=== PATIENT | female | born 1960 | race African-American/Black ===

== ENCOUNTER 2016-11-21 16:48 | Emergency (ER) | payer OTHER ==
[~2016-11-21] VITALS: Ht 160 cm; Wt 68.0 kg
[2016-11-21 17:08] VITALS: BP 157/74
--- NOTE | 2016-11-21 17:10 | NUR ---
OK TO BOOK. bib ra c/o generalized weakness from home . [employer] AT BEDSIDE. A/A/O. VS WNL. SIDE RAISL UP. HOB ELEVATED. CONNECTED TO MONIOTR. SEEN AND EVALUATED BY ED PROVIDER.
--- NOTE | 2016-11-21 17:27 | NUR ---
Patient discharged in stable condition. Written and verbal after care instructions given. Patient verbalizes understanding of instruction. OK TO BOOK. MEDICALLY CLEARED FOR BOOKING. [employer] AT BEDSIDE.
== END 2016-11-21 17:29 ==
LOC: ER 16:49
DX: S39.92XA Unspecified injury of lower back, initial encounter (principal); E11.9 Type 2 diabetes mellitus without complications; F25.9 Schizoaffective disorder, unspecified; G89.29 Other chronic pain; Y04.0XXA Assault by unarmed brawl or fight, initial encounter; Y93.89 Activity, other specified; Y92.89 Other specified places as the place of occurrence of the external cause; Y99.9 Unspecified external cause status
CPT/HCPCS: A4606; Z7610

== ENCOUNTER 2018-12-23 19:46 | Emergency (ER) | payer SELFPAY ==
[~2018-12-23] VITALS: Ht 167.6 cm; Wt 50.8 kg
[2018-12-23 19:57] VITALS: BP 121/84
== END 2018-12-23 20:07 | disposition home or self-care (01) ==
LOC: ER 19:49
DX: L03.011 Cellulitis of right finger (principal); G89.29 Other chronic pain; E11.9 Type 2 diabetes mellitus without complications

== ENCOUNTER 2019-01-20 03:42 | Inpatient (IN) | payer MEDICARE ==
[~2019-01-20] VITALS: Ht 165.1 cm; Wt 51.7 kg
--- NOTE | 2019-01-20 03:55 | NUR ---
PT BIB EMS. AAOX4. PT C/O BEING POISONED. PER PATIENT "I HAVE BEEN POISONED AND I NEED YOU GUYS TO HELP ME FIGURE OUT WHAT IT IS." PT RR EVEN AND UNLABORED. UPON ASSESSMENT INDEX FINGER INFECTION + DRAINAGE. PT PLACED ON MONITOR AND PULSE OX. NO ACUTE DISTRESS NOTED.
[2019-01-20] MEDS ORDERED: VANCOMYCIN 1 GM in IV D5W 250 ML IV ONE (04:00)
[2019-01-20] MEDS ORDERED: VANCOMYCIN 1 GM VIAL ONE (04:04)
--- NOTE | 2019-01-20 04:06 | NUR ---
Hand Or Machine Paster at bedside for lab collection
[2019-01-20 04:18] LABS: BASOPHILS # (AUTO) 0.1 /CMM (0.0-0.2); EOSINOPHILS % (AUTO) 0.9 % (0.0-6.0); HEMATOCRIT 42 % (33-45); LYMPHOCYTES # (AUTO) 1.5 /CMM (0.8-4.8); LYMPHOCYTES % (AUTO) 23.2 % (20.0-44.0); MEAN CORPUSCULAR HGB CONC 34 g/dl (31.0-36.0); MEAN CORPUSCULAR VOLUME 93 fL (82-100); MONOCYTES # (AUTO) 0.4 /CMM (0.1-1.30); MONOCYTES % (AUTO) 5.8 % (2.0-12.0); NEUTROPHILS # (AUTO) 4.4 /CMM (1.8-8.9); NEUTROPHILS % (AUTO) 69.1 % (43.0-81.0); PLATELET COUNT (AUTO) 311 /CMM (150-450); RED BLOOD CELL COUNT(AUTO) 4.52 MIL/uL (4.0-5.2); WHITE BLOOD COUNT (AUTO) 6.4 K/uL (4.3-11.0)
--- NOTE | 2019-01-20 04:30 | NUR ---
Patient is resting comfortably in bed. Easily aroused.
[2019-01-20 04:40] LABS: ACETAMINOPHEN 0 ug/ml (10-30); ALANINE AMINOTRANSFERASE 32 U/L (12-78); ALBUMIN 3.5 g/dL (3.4-5.0); ALCOHOL, BLOOD < 3 mg/dL (0-0); ALKALINE PHOSPHATASE 130 U/L (46-116); ASPARTATE AMINOTRANSFERASE 24 U/L (15-37); BILIRUBIN,DIRECT 0.1 mg/dL (0.0-0.2); BILIRUBIN,TOTAL 0.5 mg/dL (0.2-1.0); CALCIUM, SERUM 9.4 mg/dL (8.5-10.1); CARBON DIOXIDE 25 mmol/L (21-32); CHLORIDE 100 mmol/L (98-107); CREATININE 0.8 mg/dL (0.6-1.3); GLUCOSE 423 mg/dL (74-106); POTASSIUM 4.2 mmol/L (3.5-5.1); SODIUM SERUM 136 mmol/L (136-145); TOTAL PROTEIN, SERUM 7.4 g/dL (6.4-8.2); UREA NITROGEN, BLOOD 21 mg/dL (7-18)
[2019-01-20] MEDS ORDERED: INSULIN REGULAR, HUMAN 100 UNIT/ML 10 ML VIAL ONE (04:57)
[2019-01-20] MEDS ORDERED: INSULIN REGULAR, HUMAN 100 UNIT/ML 10 ML VIAL IV ONE (05:00)
[2019-01-20] MEDS ORDERED: IV NS 0.9% 1,000 ML BAG IV ONE (05:00)
--- NOTE | 2019-01-20 05:10 | NUR ---
XRAY AT BEDSIDE
--- NOTE | 2019-01-20 05:28 | NUR ---
MS 313-1
--- NOTE | 2019-01-20 06:15 | NUR ---
REPORT GIVEN TO ABAD BUCK FOR PRATIK
--- NOTE | 2019-01-20 06:20 | NUR ---
PT IN STABLE CONDITION FOR TRANSFER. PT BROUGHT UP BY EMT TRANSFERED TO BED 313-1
[2019-01-20] MEDS ORDERED: HYDROCODONE/APAP 5/325MG 1 EACH TABLET PO PRN (06:30)
[2019-01-20] MEDS ORDERED: ONDANSETRON HCL/PF 4 MG/2 ML VIAL IVP PRN (06:30)
[2019-01-20] MEDS ORDERED: ACETAMINOPHEN 325 MG TABLET PO PRN (06:30)
[2019-01-20] MEDS ORDERED: ZOLPIDEM TARTRATE 5 MG TABLET PO PRN (06:30)
[2019-01-20] MEDS ORDERED: MAGNESIUM HYDROXIDE 30 ML UDC PO PRN (06:30)
[2019-01-20] MEDS ORDERED: IV NS 0.9% 1,000 ML IV ONE (06:30)
[2019-01-20] MEDS ORDERED: Z GUARD REMEDY 2 OZ OINT TP PRN (06:30)
[2019-01-20] MEDS ORDERED: MAG HYDROX/AL HYDROX/SIMETH 30 ML UDC PO PRN (06:30)
[2019-01-20 07:30] VITALS: BP 116/73
--- NOTE | 2019-01-20 07:35 | NUR ---
RN Notes Patient sleeping in bed supine position; Right index finger open to air; Will consult with wound nurse; No complaints of pain/discomfort.
--- NOTE | 2019-01-20 07:52 | NUR ---
MS RN ADMITTING NOTES PT ADMITTED TO UNIT WITH DIAGNOSIS OF CELLULITIS TO RIGHT INDEX FINGER. A/O X3. ABLE TO MAKE NEEDS KNOWN AND AMBULATORY WITH STEADY GAIT. ORIENTED TO UNIT AND STAFF. VSS. ON ROOM AIR, BREATHING EVEN AND UNLABORED. PHOTOS OF SKIN ISSUES TAKEN AND FILED IN CHART. WOUND CONSULT ORDERED. IV ACCESS NOTED INTACT AND PATENT AT LFA G #20, IVF OF NS @ 100ML/HR STARTED, NO S/S OF PHLEBITIS OR INFILTRATION NOTED AT SITE. SAFETY MEASURES KEPT IN PLACE. BED IN LOW LOCKED POSITION WITH SR-UP X2. CALL LIGHT AND BEDSIDE TABLE WITHIN EASY REACH OF PT.
[2019-01-20 08:00] VITALS: BP 120/75
[2019-01-20] MEDS ORDERED: DEXTROSE 50%-WATER 50 ML DISP.SYRIN IV PRN (08:00)
[2019-01-20] MEDS ORDERED: FEE PK DOSING 1 MIN EA MC ONE (08:02)
[2019-01-20] MEDS: BLOOD SUGAR DIAGNOSTIC 1 EACH STRIP IN SCH ×4 (08:22→21:35)
[2019-01-20] MEDS: INSULIN REGULAR, HUMAN 100 UNIT/ML 3 ML VIAL SQ PRN ×4 (08:25→21:45)
[2019-01-20] MEDS ORDERED: METF-440 PO (08:51)
[2019-01-20] MEDS ORDERED: EMPA25TA PO (08:51)
[2019-01-20] MEDS ORDERED: TRAZ-214 PO (08:51)
[2019-01-20] MEDS ORDERED: FLUO-120 PO (08:51)
[2019-01-20] MEDS ORDERED: TOPI100T38 PO (08:51)
[2019-01-20] MEDS ORDERED: INSU100V7 SQ (08:52)
--- NOTE | 2019-01-20 10:50 | NUR ---
Social service consult requested by Dr. Walsh for homelessness. Pt. is a 58 year old -[place] female who came to [facility] complaining of "being poisoned." Pt. has a right index finger infection and was admitted for Osteomyelitis. SW met with the pt. bedside. Pt. is alert and oriented x 4. Pt. had her belongings spread out on the bed and was standing bedside. Pt. sat down during the assessment. Pt. appearance is disheveled and unkempt. Pt. appears sad and teary eyed. Pt. states, she is homeless and it has been dangerous for the homeless in the community. Pt. further states, a lot of the homeless she has known are . Pt. informed SW that her shopping cart wheels had fumes and feels someone is poisoning her. Pt. has history of Schizophrenia and receives mental health services from [facility]. 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 Pt. denies suicidal and homicidal ideations and visual/auditory hallucinations at this time. Pt. receives $825 per month in SSI. Pt. is on probation for battery and is in Mental health diversion program through the courts. Pt. has a history of drug use but is not currently using. Pt. drinks alcohol a few once or twice per week. Pt's drink of choice is the flavored alcoholic drinks. Pt. is willing to go to prison short-term if deemed appropriate. JOSIAS updated family independence case manager Isidra regarding pt. willing to go to a SNF. SW is available, if needed.
--- NOTE | 2019-01-20 12:19 | NUR ---
construction management instructor notes Patient complaining of pain in her right hand rated at 6/10; Administered PRN [place] 5/325 mg per patient's request; Will continue to monitor effectiveness of pain medication.
[2019-01-20] MEDS: VANCOMYCIN 0.75 GM in IV D5W 250 ML IV SCH ×2 (12:55→20:52)
--- NOTE | 2019-01-20 13:52 | NUR ---
RN NOTES PT SIGNED CONSENT FOR SERIAL WOUND DEBRIDEMENT OF RIGHT INDEX FINGER. WOUND DEBRIDEMENT DONE BY STACIE MCCRARY. APPLIED XEROFORM AND DRY DRESSING AFTER. PHOTO TAKEN POST WOUND DEBRIDEMENT AND FILED IN PT'S CHART.
--- NOTE | 2019-01-20 14:59 | NUR ---
RN NOTES URINE SPECIMEN COLLECTED FOR U/A AND DRUG SCREEN, CALLED LAB TO PICK-UP SPECIMEN.
[2019-01-20 15:45] LABS: APPEARANCE,URINE CLEAR (CLEAR); BILIRUBIN,URINE NEGATIVE (NEGATIVE); BLOOD, URINE TRACE Ery/uL (NEGATIVE); COLOR,URINE YELLOW (YELLOW); KETONES,URINE NEGATIVE (NEGATIVE); LEUKOCYTE ESTERASE ,URINE TRACE (NEGATIVE); NITRITE, URINE NEGATIVE (NEGATIVE); PROTEIN,URINE NEGATIVE (NEGATIVE); UGLUCOSE >=1000 mg/dL (NEGATIVE); UROBILINOGEN,URINE 0.2 EU/dL (0.2)
[2019-01-20 15:46] LABS: BACTERIA,URINE None seen /HPF (None Seen); RBC,URINE 0-2 /HPF (0-2); SQUAMOUS EPITHELIAL CELL,UR Few /HPF (None Seen)
[2019-01-20 16:00] VITALS: BP 116/73
[2019-01-20] MEDS: TOPIRAMATE 100 MG TABLET PO SCH (16:31)
--- NOTE | 2019-01-20 17:40 | NUR ---
RN NOTES PATIENT HAS AN ORDER FOR A GPS CONSULT. CALLED GPS UNIT AND SPOKE TO COPY DIRECTOR AND WAS INFORMED THAT DR. CUNHA WILL BE THE MD COLD ROLLING MACHINE SETTER TOMORROW (01/21/19); FAXED PATIENTS FACESHEET TO GPS UNIT AND RECEIVED CONFIRMATION. WILL ENDORSE TO NEXT SHIFT.
[2019-01-20] MEDS ORDERED: PIPERACILLIN /TAZOBACTAM 3.375 G in IV D5W 50 ML IV ONE (18:00)
--- NOTE | 2019-01-20 18:41 | NUR ---
MS RN CLOSING NOTES PATIENT AWAKE AND RESTING IN BED AT THIS TIME. A/O X4. ABLE TO MAKE NEEDS KNOWN. ON ROOM AIR, TOLERATING WELL WITH NO SIGNS OF RESPIRATORY DISTRESS NOTED THROUGHOUT THE DAY. DRESSING ON RIGHT INDEX FINGER C/D/I. IV SITE @ LFA G #20 INTACT AND PATENT, IV ATB OF ZOSYN INFUSING AT THIS TIME, NO S/S OF INFILTRATIONS/INFECTION NOTED AT SITE. ALL NEEDS AND CARE ATTENDED WELL. SAFETY PRECAUTIONS MAINTAINED. CALL LIGHT WITHIN REACH, BED IN LOWEST LOCKED POSITION WITH UPPER SIDE RAILS UP. WILL ENDORSE TO DISASTER RECOVERY SPECIALIST NURSE FOR CONTINUITY OF CARE
--- NOTE | 2019-01-20 19:30 | NUR ---
MS RN NOTES RECEIVED STANDING BY BED SIDE,SORTING HER BELONGINGS,HOMELESS,S/P DEBRIDEMENT OF RIGHT INDEX FINGER.IVF IN PROGRESS ON LEFT FORE ARM SALINE LOCK VIA IV PUMP,SITE PATENT.NOTED MULTIPLE BLACK SPOTS ON UPPER AND LOWER EXTREMITIES.WILL CONTINUE TO MONITOR STATUS.CALL LIGHT IN REACH,NEEDS ANTICIPATED.
[2019-01-20 20:00] VITALS: BP 105/71
[2019-01-20 20:18] VITALS: BP 105/71
--- NOTE | 2019-01-20 20:45 | NUR ---
MS RN NOTES DRESSING CHANGED DONE ON RIGHT INDEX FINGER,OFFERED PAIN MEDICINE BUT REFUSED
[2019-01-20] MEDS: INSULIN GLARGINE, 100 UNIT/ML CARTRIDGE SQ SCH (21:46)
--- NOTE | 2019-01-20 21:55 | NUR ---
MS RN NOTES ACCU-CHECK BLOOD SUGAR CHECK 288,COVERED WITH HUMULIN R 6 UNITS,ALONG WITH LANTUS 18 UNITS SCHEDULED,GIVEN SQ ON LEFT DELTOID.SNACKS PROVIDED AT BEDSIDE.
[2019-01-21] MEDS: PIPERACILLIN /TAZOBACTAM 3.375 G in IV D5W 100 ML IV SCH ×2 (00:01→07:41)
--- NOTE | 2019-01-21 01:00 | NUR ---
MS RN NOTES SOUND ASLEEP,KEPT WARM AND COMFORTABLE.
--- NOTE | 2019-01-21 04:00 | NUR ---
MS RN NOTES JUAN DANIEL THROUGH 12,WILL ADMINISTER DOSE SCHEDULED AT 0500
[2019-01-21 04:08] LABS: BASOPHILS % (AUTO) 0.6 % (0.0-2.0); HEMATOCRIT 37 % (33-45); HEMOGLOBIN 12.2 g/dL (11.5-14.8); LYMPHOCYTES # (AUTO) 1.9 /CMM (0.8-4.8); LYMPHOCYTES % (AUTO) 39.9 % (20.0-44.0); MEAN CORPUSCULAR HGB CONC 33 g/dl (31.0-36.0); MEAN CORPUSCULAR VOLUME 92 fL (82-100); MONOCYTES # (AUTO) 0.4 /CMM (0.1-1.30); MONOCYTES % (AUTO) 7.5 % (2.0-12.0); NEUTROPHILS # (AUTO) 2.3 /CMM (1.8-8.9); PLATELET COUNT (AUTO) 252 /CMM (150-450); WHITE BLOOD COUNT (AUTO) 4.7 K/uL (4.3-11.0)
[2019-01-21 04:16] LABS: CALCIUM, SERUM 8.2 mg/dL (8.5-10.1); CREATININE 0.8 mg/dL (0.6-1.3); MAGNESIUM 1.5 mg/dL (1.8-2.4); PHOSPHORUS 3.6 mg/dL (2.5-4.9); POTASSIUM 3.8 mmol/L (3.5-5.1)
[2019-01-21] MEDS: VANCOMYCIN 0.75 GM in IV D5W 250 ML IV SCH (05:06)
--- NOTE | 2019-01-21 05:30 | NUR ---
MS RN NOTES ACCU-CHECK BLOOD SUGAR CHECK 336,COVERED WITH HUMULIN R 8 UNITS PER SLIDING SCALE.
[2019-01-21] MEDS: BLOOD SUGAR DIAGNOSTIC 1 EACH STRIP IN SCH ×4 (05:55→20:42)
[2019-01-21] MEDS: INSULIN REGULAR, HUMAN 100 UNIT/ML 3 ML VIAL SQ PRN ×4 (06:04→20:57)
--- NOTE | 2019-01-21 06:33 | NUR ---
MS RN NOTES FAIRLY RESTED,RIGHT INDEX FINGER DRESSING INTACT AND DRY.IV ABX TOLERATED WELL.PAIN TOLERABLE THRU OUT SHIFT.IN NO ACUTE DISTRESS.WILL ENDORSE TO DAY NURSE FOR PRATIK.
--- NOTE | 2019-01-21 07:24 | NUR ---
MS RN OPENING NOTES PATIENT RECEIVED AWAKE IN BED IN NO ACUTE SIGN SOF DISTRESS, HOB ELEVATED. A/O X4. ABLE TO MAKE NEEDS KNOWN, DENIES PAIN OR ANY DISCOMFORTS AT THIS TIME. ON ROOM AIR, TOLERATING WELL WITH NO SOB NOTED. DRESSING ON RIGHT INDEX FINGER C/D/I. IV ACCESS ON LFA G #20 INTACT AND PATENT. SAFETY PRECAUTIONS MAINTAINED. CALL LIGHT WITHIN REACH, BED IN LOWEST LOCKED POSITION WITH UPPER SIDE RAILS UP. WILL CONTINUE TO MONITOR ACCORDINGLY.
[2019-01-21 08:00] VITALS: BP 113/74
[2019-01-21] MEDS: TOPIRAMATE 100 MG TABLET PO SCH ×2 (08:06→16:23)
[2019-01-21] MEDS: FLUOXETINE HCL 20 MG CAPSULE PO SCH (08:06)
[2019-01-21] MEDS ORDERED: IV NS 0.9% 500 ML IV ONE (09:00)
--- NOTE | 2019-01-21 09:58 | NUR ---
RN NOTES PT NOTED WITH LOW NA 130 TODAY, NS 500ML X1 BOLUS ADMINISTERED TO RFA IV ACCESS PER STACIE BLAKE.
[2019-01-21] MEDS: Magnesium 1GM/D5W 100ML PREMIX 100 ML IV SCH ×2 (10:10→11:34)
--- NOTE | 2019-01-21 11:39 | NUR ---
RN NOTES CALLED GPS CHARGE NURSE JON REGARDING PSYCH CONSULT FOR PT, HE STATED THAT THEY DIDN'T RECEIVE CONSULT REQUEST AND FACE SHEET YESTERDAY. RE-FAXED FACE SHEET AND RECEIVED CONFIRMATION.
[2019-01-21] MEDS: VANCOMYCIN 0.75 GM in IV NS 0.9% 250 ML IV SCH ×2 (12:29→20:41)
[2019-01-21] MEDS: PIPERACILLIN /TAZOBACTAM 3.375 G in IV NS 0.9% 100 ML IV SCH ×2 (15:43→23:36)
[2019-01-21 16:00] VITALS: BP 134/73
[2019-01-21] MEDS: LACTOBACILLUS RHAMNOSUS GG 1 EACH CAP.SPRINK PO SCH (16:23)
--- NOTE | 2019-01-21 18:41 | NUR ---
MS RN CLOSING NOTES PATIENT IN BED AWAKE AND WATCHING TV AT THIS TIME. A/O X4. ABLE TO MAKE NEEDS KNOWN AND AMBULATORY. PT TOLERATING ROOM AIR WITH NO SIGNS OF SOB NOTED THROUGHOUT THE DAY. DRESSING ON RIGHT INDEX FINGER C/D/I. IV SITES @ LFA G #20 AND RFA G#22 BOTH INTACT AND PATENT, IV ATB ZOSYN INFUSING AT 25ML/HR TO RFA, NO S/S OF INFILTRATION OR PHLEBITIS NOTED AT SITES. ALL NEEDS AND CARE ATTENDED WELL. SAFETY MEASURES IN PLACE: CALL LIGHT WITHIN REACH, BED IN LOWEST LOCKED POSITION WITH UPPER SIDE RAILS UP. WILL ENDORSE TO AREA FIELD MANAGER NURSE FOR PRATIK.
--- NOTE | 2019-01-21 19:15 | NUR ---
MS RN NOTES ON BED AWAKE,ALERT,ORIENTED X4 WATCHING TV PROGRAM,NS AT TKO RATE IN PROGRESS ON LFA.RIGHT INDEX FINGER DRESSING INTACT AND DRY,ISOLATION PRECAUTION FOR STAPH AUREUS AWAITING SENSITIVITY.IN NO ACUTE DISTRESS.CALL LIGHT IN REACH,NEEDS ANTICIPATED.
[2019-01-21 20:00] VITALS: BP 129/77
[2019-01-21] MEDS: INSULIN GLARGINE, 100 UNIT/ML CARTRIDGE SQ SCH (20:56)
--- NOTE | 2019-01-21 21:05 | NUR ---
MS RN NOTES ACCU-CHECK BLOOD SUGAR CHECK 154,COVERED WITH HUMULIN R 2 UNIT PER SLIDING SCALE,ALONG WITH LANTUS 18 UNITS SCHEDULED Q HS.SNACKS PROVIDED AT BEDSIDE.
[2019-01-22] MEDS: VANCOMYCIN 0.75 GM in IV NS 0.9% 250 ML IV SCH ×3 (05:01→21:23)
[2019-01-22] MEDS: BLOOD SUGAR DIAGNOSTIC 1 EACH STRIP IN SCH ×4 (05:46→21:20)
[2019-01-22] MEDS: INSULIN REGULAR, HUMAN 100 UNIT/ML 3 ML VIAL SQ PRN ×3 (05:55→21:13)
--- NOTE | 2019-01-22 06:00 | NUR ---
MS RN NOTES ACCU-CHECK BLOOD SUGAR CHECK 197,COVERED WITH HUMULIN R 3 UNITS PER SLIDING SCALE
--- NOTE | 2019-01-22 06:19 | NUR ---
MS RN NOTES NO SIGNIFICANT CHANGE IN STATUS.PAIN TOLERABLE ON RIGHT INDEX FINGER.REFUSED PAIN MEDICINE.IV ABX TOLERATED WELL.IN NO ACUTE DISTRESS.WILL ENDORSE TO DAY NURSE FOR PRATIK.
[2019-01-22 06:33] LABS: BASOPHILS % (AUTO) 0.6 % (0.0-2.0); EOSINOPHILS % (AUTO) 1.3 % (0.0-6.0); HEMATOCRIT 41 % (33-45); HEMOGLOBIN 13.5 g/dL (11.5-14.8); LYMPHOCYTES % (AUTO) 44.9 % (20.0-44.0); MEAN CORPUSCULAR HGB CONC 33 g/dl (31.0-36.0); MEAN CORPUSCULAR VOLUME 92 fL (82-100); MONOCYTES # (AUTO) 0.3 /CMM (0.1-1.30); MONOCYTES % (AUTO) 7.3 % (2.0-12.0); NEUTROPHILS % (AUTO) 45.9 % (43.0-81.0); PLATELET COUNT (AUTO) 309 /CMM (150-450); RED BLOOD CELL COUNT(AUTO) 4.41 MIL/uL (4.0-5.2); WHITE BLOOD COUNT (AUTO) 4.4 K/uL (4.3-11.0)
[2019-01-22 06:38] LABS: CALCIUM, SERUM 8.4 mg/dL (8.5-10.1); CREATININE 0.9 mg/dL (0.6-1.3); MAGNESIUM 1.8 mg/dL (1.8-2.4); POTASSIUM 4.3 mmol/L (3.5-5.1)
--- NOTE | 2019-01-22 07:30 | NUR ---
RN MS NOTES PT IN BED, AWAKE, ALERT AND ORIENTED, NO COMPLAINT OF PAIN AT THIS TIME, RESPIRATIONS NORMAL, NO BLEEDING NOTED TO RIGHT FINGER CELLULITIS, DRESSING CLEAN AND DRY, NEEDS ATTENDED.
[2019-01-22] MEDS: PIPERACILLIN /TAZOBACTAM 3.375 G in IV NS 0.9% 100 ML IV SCH ×2 (07:55→16:12)
[2019-01-22 08:10] VITALS: BP 117/80
[2019-01-22] MEDS: FLUOXETINE HCL 20 MG CAPSULE PO SCH (08:27)
[2019-01-22] MEDS: LACTOBACILLUS RHAMNOSUS GG 1 EACH CAP.SPRINK PO SCH ×2 (08:27→17:34)
[2019-01-22] MEDS: TOPIRAMATE 100 MG TABLET PO SCH ×2 (08:27→17:34)
--- NOTE | 2019-01-22 12:02 | NUR ---
RN MS NOTES PT IN BED, AWAKE, ALERT AND ORIENTED, WATCHING TV, EATING LUNCH, TOLERATING CURRENT DIET WELL, CALL LIGHT WITHIN REACH, NEEDS ATTENDED.
[2019-01-22 16:09] VITALS: BP 109/69
[2019-01-22] MEDS ORDERED: MEROPENEM 1 G in IV NS 0.9% 100 ML IV ONE ×2 (17:30→18:00)
[2019-01-22] MEDS ORDERED: MEROPENEM 1 G in IV NS 0.9% 100 ML IV SCH (18:00)
--- NOTE | 2019-01-22 18:07 | NUR ---
RN MS NOTES PT IN BED, AWAKE, ALERT AND ORIENTED, EATING DINNER AND WATCHING TV, NO COMPLAINT AT THIS TIME, NOT IN DISTRESS, COMPLIANT WITH MEDICATIONS AND INTERVENTIONS, PM MEDS GIVEN ORDERED, ALL NEEDS ATTENDED, ISOLATION PRECAUTIONS OBSERVED.
--- NOTE | 2019-01-22 19:15 | NUR ---
RN MS PM OPENING NOTES BEDSIDE REPORT RECIEVED FROM TOM BUCK. PT IN BED, AWAKE, ALERT AND ORIENTED, GIVEN A SNACK AT PATIENTS REQUEST. PT DENIES OTHER NEEDS AT THIS TIME, IN NO APPARENT DISTRESS, CONTACT ISOLATION PRECAUTIONS BEING OBSERVED. REVIEWED POC TO CONTINUE ANTIBIOTICS AND WOUND CARE. PT STILL AWAITING TO BE SEEN BY PLASTIC SURGERGEON FOR CONSULT. BED DWON LOCKED SR X2 VERBALIZED UNDERSTANDING TO CALL FOR ASSISTANCE NEEDED.
[2019-01-22 20:00] VITALS: BP 127/87
[2019-01-22] MEDS: INSULIN GLARGINE, 100 UNIT/ML CARTRIDGE SQ SCH (21:12)
[2019-01-23] MEDS ORDERED: MEROPENEM 1 G in IV NS 0.9% 100 ML IV SCH ×2
[2019-01-23] MEDS: MEROPENEM 1 G in IV NS 0.9% 100 ML IV SCH ×3 (00:57→16:42)
[2019-01-23] MEDS: VANCOMYCIN 0.75 GM in IV NS 0.9% 250 ML IV SCH ×3 (04:23→22:22)
[2019-01-23] MEDS: INSULIN REGULAR, HUMAN 100 UNIT/ML 3 ML VIAL SQ PRN ×4 (06:19→22:13)
[2019-01-23] MEDS: BLOOD SUGAR DIAGNOSTIC 1 EACH STRIP IN SCH ×4 (06:22→22:21)
[2019-01-23 06:25] LABS: BASOPHILS % (AUTO) 0.6 % (0.0-2.0); EOSINOPHILS % (AUTO) 1.3 % (0.0-6.0); HEMATOCRIT 37 % (33-45); HEMOGLOBIN 12.5 g/dL (11.5-14.8); LYMPHOCYTES # (AUTO) 1.9 /CMM (0.8-4.8); LYMPHOCYTES % (AUTO) 40.8 % (20.0-44.0); MEAN CORPUSCULAR HGB CONC 34 g/dl (31.0-36.0); MEAN CORPUSCULAR VOLUME 93 fL (82-100); MONOCYTES # (AUTO) 0.3 /CMM (0.1-1.30); NEUTROPHILS # (AUTO) 2.4 /CMM (1.8-8.9); NEUTROPHILS % (AUTO) 50.3 % (43.0-81.0); PLATELET COUNT (AUTO) 276 /CMM (150-450); RED BLOOD CELL COUNT(AUTO) 4.05 MIL/uL (4.0-5.2); WHITE BLOOD COUNT (AUTO) 4.7 K/uL (4.3-11.0)
--- NOTE | 2019-01-23 06:25 | NUR ---
RN MS PM CLOSING NOTES PT IN BED, AROUSABLE TO NAME ALERT AND ORIENTED, GIVEN A SNACK AT PATIENTS REQUEST. PT DENIES OTHER NEEDS AT THIS TIME, IN NO APPARENT DISTRESS, CONTACT ISOLATION PRECAUTIONS BEING OBSERVED. BED DOWN LOCKED SR X2 VERBALIZED UNDERSTANDING TO CALL FOR ASSISTANCE NEEDED. FINGER DRESSED RIGHT INDEX DRESSING CDI. IV RUNNING AT TKO TO RIGHT FA WITH NO S/S OF INFILTRATION.
[2019-01-23 06:34] LABS: CALCIUM, SERUM 8.1 mg/dL (8.5-10.1); CREATININE 0.9 mg/dL (0.6-1.3)
--- NOTE | 2019-01-23 07:30 | NUR ---
MS RN OPENING NOTES PATIENT RECEIVED ASLEEP IN BED, EASILY AWAKENS. HOB ELEVATED. PT IS A/O X4. ABLE TO MAKE NEEDS KNOWN, DENIES PAIN OR ANY DISCOMFORTS AT THIS TIME. ON ROOM AIR, TOLERATING, BREATHING EVEN AND UNLABORED. DRESSING ON RIGHT INDEX FINGER C/D/I. IV ACCESS ON RFA G #22 INTACT AND PATENT. SAFETY PRECAUTIONS IN PLACE. CALL LIGHT WITHIN REACH, BED IN LOWEST LOCKED POSITION WITH UPPER SIDE RAILS UP. WILL CONTINUE TO MONITOR ACCORDINGLY.
--- NOTE | 2019-01-23 07:31 | NUR ---
WOUND CARE CONSULT WOUND CARE RECEIVED CONSULT FOR RIGHT INDEX FINGER CELLULITIS. WOUND CARE WILL DEFER CONSULT AND TREATMENT PLANS TO PLASTIC SURGICAL TEAM WHO ARE CURRENTLY FOLLOWING THIS PATIENT. PATIENT WITH SHAQ AT 21, WILL SEE PRN.
[2019-01-23 08:00] VITALS: BP 128/77
[2019-01-23] MEDS: TOPIRAMATE 100 MG TABLET PO SCH ×2 (08:44→16:42)
[2019-01-23] MEDS: FLUOXETINE HCL 20 MG CAPSULE PO SCH (08:44)
[2019-01-23] MEDS: LACTOBACILLUS RHAMNOSUS GG 1 EACH CAP.SPRINK PO SCH ×2 (08:44→16:42)
[2019-01-23 16:00] VITALS: BP 110/64
--- NOTE | 2019-01-23 18:45 | NUR ---
MS RN CLOSING NOTES PATIENT IN BED AWAKE AND WATCHING TV AT THIS TIME. A/O X4. ABLE TO MAKE NEEDS KNOWN. PT TOLERATING ROOM AIR WELL WITH NO SIGNS OF SOB NOTED THROUGHOUT THE DAY. DRESSING ON RIGHT INDEX FINGER C/D/I. IV ACCESS @ LFA G#20 INTACT AND PATENT, IV ATB MEROPENEM INFUSING AT THIS TIME, NO S/S OF INFILTRATIONS OR PHLEBITIS NOTED. ALL NEEDS AND CARE ATTENDED WELL. SAFETY MEASURES IN PLACE: CALL LIGHT WITHIN REACH, BED IN LOWEST LOCKED POSITION WITH UPPER SIDE RAILS UP. WILL ENDORSE TO INTEGRATION TECHNICIAN NURSE FOR PRATIK.
--- NOTE | 2019-01-23 19:15 | NUR ---
MS RN OPENING NOTE BEDSIDE REPORT RECIEVED FROM BERTO BUCK. PATIENT IN BED AWAKE. A/O X4. PT TOLERATING ROOM AIR WITH NO SIGNS OF SOB NOTED. DRESSING ON RIGHT INDEX FINGER C/D/I. IV ACCESS @ LFA G#20 INTACT AND PATENT, IV ABX MEROPENEM REINITIALIZED, NO S/S OF INFILTRATIONS LIKE SWELLING OR REDNESS AT THE SITE SEEN. SAFETY MEASURES IN PLACE: CALL LIGHT WITHIN REACH, BED IN LOWEST LOCKED POSITION WITH SIDE RAILS UP X2. WILL CONT TO MONITOR.
[2019-01-23 20:09] VITALS: BP 128/77
[2019-01-23] MEDS: INSULIN GLARGINE, 100 UNIT/ML CARTRIDGE SQ SCH (22:15)
[2019-01-24] MEDS: MEROPENEM 1 G in IV NS 0.9% 100 ML IV SCH ×4 (01:08→23:28)
[2019-01-24 04:06] LABS: HIV SCRN 4G wRFX Non Reactive (Non Reactive)
[2019-01-24] MEDS: VANCOMYCIN 0.75 GM in IV NS 0.9% 250 ML IV SCH ×2 (04:38→12:44)
[2019-01-24 06:20] LABS: BASOPHILS # (AUTO) 0.1 /CMM (0.0-0.2); BASOPHILS % (AUTO) 1.1 % (0.0-2.0); EOSINOPHILS % (AUTO) 2.2 % (0.0-6.0); HEMATOCRIT 38 % (33-45); HEMOGLOBIN 12.7 g/dL (11.5-14.8); LYMPHOCYTES # (AUTO) 2.3 /CMM (0.8-4.8); LYMPHOCYTES % (AUTO) 45.6 % (20.0-44.0); MEAN CORPUSCULAR HGB CONC 34 g/dl (31.0-36.0); MEAN CORPUSCULAR VOLUME 91 fL (82-100); MONOCYTES # (AUTO) 0.3 /CMM (0.1-1.30); MONOCYTES % (AUTO) 6.3 % (2.0-12.0); NEUTROPHILS # (AUTO) 2.3 /CMM (1.8-8.9); NEUTROPHILS % (AUTO) 44.8 % (43.0-81.0); PLATELET COUNT (AUTO) 285 /CMM (150-450); RED BLOOD CELL COUNT(AUTO) 4.13 MIL/uL (4.0-5.2)
[2019-01-24 06:28] LABS: CALCIUM, SERUM 8.1 mg/dL (8.5-10.1); CREATININE 0.7 mg/dL (0.6-1.3); POTASSIUM 3.9 mmol/L (3.5-5.1)
--- NOTE | 2019-01-24 06:30 | NUR ---
MS RN closing NOTE PATIENT IN BED AWAKE. A/O X4. PT TOLERATING ROOM AIR WITH NO SIGNS OF SOB NOTED. DRESSING ON RIGHT INDEX FINGER C/D/I. IV ACCESS @ LFA G#20 INTACT AND PATENT, NATE S/S OF INFILTRATIONS LIKE SWELLING OR REDNESS AT THE SITE SEEN. SAFETY MEASURES IN PLACE: CALL LIGHT WITHIN REACH, BED IN LOWEST LOCKED POSITION WITH SIDE RAILS UP X2. given insulin coverage as ordered.
[2019-01-24] MEDS: INSULIN REGULAR, HUMAN 100 UNIT/ML 3 ML VIAL SQ PRN ×4 (06:43→22:28)
[2019-01-24] MEDS: BLOOD SUGAR DIAGNOSTIC 1 EACH STRIP IN SCH ×4 (06:43→22:25)
--- NOTE | 2019-01-24 07:35 | NUR ---
MS RN OPENING NOTES PATIENT RECEIVED AWAKE IN BED IN NO ACUTE SIGN SOF DISTRESS. A/O X4. ABLE TO MAKE NEEDS KNOWN, DENIES PAIN OR ANY DISCOMFORTS AT THIS TIME. ON ROOM AIR, RESPIRATIONS EVEN AND UNLABORED. DRESSING ON RIGHT INDEX FINGER C/D/I. IV ACCESS ON LFA G #20 INTACT AND PATENT. SAFETY PRECAUTIONS IN PLACE. BED IN LOWEST LOCKED POSITION WITH UPPER SIDE RAILS UP. CALL LIGHT WITHIN REACH. WILL CONTINUE TO MONITOR PT.
[2019-01-24 08:00] VITALS: BP 119/73
[2019-01-24] MEDS: FLUOXETINE HCL 20 MG CAPSULE PO SCH (08:17)
[2019-01-24] MEDS: TOPIRAMATE 100 MG TABLET PO SCH ×2 (08:17→16:32)
[2019-01-24] MEDS: LACTOBACILLUS RHAMNOSUS GG 1 EACH CAP.SPRINK PO SCH ×2 (08:18→16:32)
[2019-01-24 16:00] VITALS: BP 118/76
--- NOTE | 2019-01-24 18:42 | NUR ---
MS RN CLOSING NOTES PATIENT IN BED AWAKE AND WATCHING TV AT THIS TIME. A/O X4. ABLE TO MAKE NEEDS KNOWN. ON ROOM AIR, TOLERATING WELL WITH NO SOB NOTED THROUGHOUT THE DAY. DRESSING ON RIGHT INDEX FINGER C/D/I. IV ACCESS @ LFA G#20 INTACT, PATENT AND FLUSHES WELL, NO S/S OF INFILTRATIONS OR PHLEBITIS NOTED AT SITE. ALL NEEDS AND CARE ATTENDED WELL. SAFETY MEASURES KEPT IN PLACE: CALL LIGHT WITHIN REACH, BED IN LOWEST LOCKED POSITION WITH UPPER SIDE RAILS UP. WILL ENDORSE TO VOLUNTEER PATIENT REPRESENTATIVE NURSE FOR PRATIK.
[2019-01-24 20:00] VITALS: BP 127/80
[2019-01-24] MEDS: VANCOMYCIN 1 GM in IV NS 0.9% 250 ML IV SCH (22:09)
[2019-01-24] MEDS: INSULIN GLARGINE, 100 UNIT/ML CARTRIDGE SQ SCH (22:30)
--- NOTE | 2019-01-24 23:22 | NUR ---
M/S RN OPENING NOTES PATIENT RECEIVED IN ROOM WALKING AROUND A/O x4. NO SIGNS OF ACUTE DISTRESS, SOB, AND NO CURRENT COMPLAINTS OF PAIN. PATIENT HAS DRESSING ON RIGHT INDEX FINGER, DRESSING DRY AND CLEAN. IV LOCATED ON LEFT FA G#20. PATIENT ABLE TO MAKE NEEDS KNOWN. SAFETY PRECAUTIONS ARE IN PLACE WITH BED IN LOWEST POSITION AND BREAKS ON, KNOWS HOW TO USE THE JONATAN LIGHT. WILL CONTINUE TO MONITOR. Addendum: 01/24/19 at 0117 by LENA WILL RN WRONG TIME DOCUMENTED RECEIVED AT 1921
[2019-01-25] MEDS: VANCOMYCIN 1 GM in IV NS 0.9% 250 ML IV SCH ×2 (04:56→13:15)
[2019-01-25] MEDS: BLOOD SUGAR DIAGNOSTIC 1 EACH STRIP IN SCH ×3 (06:31→17:14)
--- NOTE | 2019-01-25 06:34 | NUR ---
M/S RN NOTES FSBS- 115 NO INSULIN GIVEN PER SLIDING SCALE.
--- NOTE | 2019-01-25 06:56 | NUR ---
M/S RN CLOSING NOTES PATIENT CURRENTLY RESTING IN BED A/O x4. NO SIGNS OF ACUTE DISTRESS, SOB, AND NO CURRENT COMPLAINTS OF PAIN. PATIENT HAS DRESSING ON RIGHT INDEX FINGER, DRESSING DRY AND CLEAN. IV LOCATED ON LEFT FA G#20. PATIENT ABLE TO MAKE NEEDS KNOWN. SAFETY PRECAUTIONS ARE IN PLACE WITH BED IN LOWEST POSITION AND BREAKS ON, KNOWS HOW TO USE THE JONATAN LIGHT. WILL ENDORSE TO ONCOMING SHIFT ABOUT PRATIK.
[2019-01-25 07:30] LABS: CALCIUM, SERUM 8.4 mg/dL (8.5-10.1); CREATININE 0.6 mg/dL (0.6-1.3); POTASSIUM 3.7 mmol/L (3.5-5.1)
--- NOTE | 2019-01-25 07:30 | NUR ---
RN MS NOTES PT IN BED, ASLEEP, EASY TO AROUSE, ALERT AND ORIENTED, NO COMPLAINT AT THIS TIME, RESPIRATIONS NORMAL, CALL LIGHT WITHIN REACH, KEPT COMFORTABLE IN BED.
[2019-01-25 08:00] VITALS: BP 103/60
[2019-01-25] MEDS: FLUOXETINE HCL 20 MG CAPSULE PO SCH (08:38)
[2019-01-25] MEDS: TOPIRAMATE 100 MG TABLET PO SCH ×2 (08:38→16:13)
[2019-01-25] MEDS: LACTOBACILLUS RHAMNOSUS GG 1 EACH CAP.SPRINK PO SCH ×2 (08:38→16:13)
[2019-01-25] MEDS: MEROPENEM 1 G in IV NS 0.9% 100 ML IV SCH ×2 (08:44→15:08)
[2019-01-25] MEDS: INSULIN REGULAR, HUMAN 100 UNIT/ML 3 ML VIAL SQ PRN ×2 (12:02→17:09)
[2019-01-25 16:00] VITALS: BP 125/70
--- NOTE | 2019-01-25 17:34 | NUR ---
RN MS NOTES PT IN BED, AWAKE, ALERT AND ORIENTED, NO COMPLAINT OF PAIN OR ANY DISCOMFORT, AMBULATES IN THE ROOM WITH STEADY GAIT, DUE MEDS GIVEN ORDERED, DISCHARGE ORDER GIVEN BY DR. JOY, PT INFORMED, DISCHARGE AND MEDICATION INSTRUCTIONS PROVIDED TO PT, VERBALIZED UNDERSTANDING, SKIN CHECK DONE, PT AGREED TO HAVE PHOTOS OF HER RIGHT INDEX FINGER TAKEN BUT REFUSED PHOTOS FOR THE REST OF HER OTHER BODY PARTS, STATED THAT IT IS NOT NEEDED, ALL BELONGINGS ACCOUNTED FOR, REPORT GIVEN TO IRINEO BUCK OF [facility], BLOOD SUGAR CHECKED, INSULIN GIVEN PER SLIDING SCALE ORDERED, PT ATE DINNER, PICKED UP BY 2 AMBULANCE PERSONNEL, LEFT VIA GUERNEY IN STABLE CONDITION.
== END 2019-01-25 17:43 | DRG 628 ==
LOC: ER 03:43 → MED 05:46
PROVIDERS: ADMIT Nurse Practitioner Acute Care; ATTEND Internal Medicine
PROC: 0PBT0ZZ Excision of Right Finger Phalanx, Open Approach (ICD-10-PCS; principal; 2019-01-20)
DX: E11.65 Type 2 diabetes mellitus with hyperglycemia (principal); N17.0 Acute kidney failure with tubular necrosis; M86.8X4 Other osteomyelitis, hand; E87.1 Hypo-osmolality and hyponatremia; F32.2 Major depressive disorder, single episode, severe without psychotic features; L03.011 Cellulitis of right finger; E11.69 Type 2 diabetes mellitus with other specified complication; G89.29 Other chronic pain; M54.9 Dorsalgia, unspecified; E83.42 Hypomagnesemia; G40.909 Epilepsy, unspecified, not intractable, without status epilepticus; F15.10 Other stimulant abuse, uncomplicated; Z59.0 Homelessness; B96.20 Unspecified Escherichia coli [E. coli] as the cause of diseases classified elsewhere; B96.1 Klebsiella pneumoniae [K. pneumoniae] as the cause of diseases classified elsewhere; B95.62 Methicillin resistant Staphylococcus aureus infection as the cause of diseases classified elsewhere
CPT/HCPCS: 36415; 73140-TC; 80048-TC; 80061-TC; 80076-TC; 80202-TC; 80305; 81000-TC; 82962-TC; 83605-TC; 83735-TC; 84100-TC; 85025-TC; 85730-TC; 87040-TC; 87070-TC; 87081-TC; 87086-TC; 87186-TC; A6403; G0378; G0480; J1815; J2185; J2543; J3370; J3475; J7030; J7040; J7050; J7060

== ENCOUNTER 2019-01-29 13:29 | Inpatient (IN) | payer MEDICARE ==
[~2019-01-29] VITALS: Ht 165.1 cm; Wt 54.1 kg
[~2019-01-29 13:29] MED LIST: EMPA25TA PO; FLUO20CA40 PO; INSU100V7 SQ; METF-440 PO; TOPI100T38 PO; TRAZ-257 PO
--- NOTE | 2019-01-29 17:20 | NUR ---
MS PHYSICIAN PEDIATRICIAN NOTES PATIENT DIRECT ADMIT FROM [facility] PATIENT MED /SURG ON DX OF RIGHT INDEX FINGER AMPUTATION SCHEDULED SURGERY ON TOMORROW. PATIENT A/O X3/4 STABLE NO ACUTE RESPIRATORY DISTRESS, BREATHING UNLABORED. PATIENT AMBULATORY SELF CARE. SKIN INTACT, V/S TAKEN T-98, BP-126/83, P-72, R-18, O2-100 RA. PATIENT REFUSED PAIN, CALL LIGHT WITHIN TO REACH, SAFETY PRECAUTION MAINTAINED ALL THE TIME.
[2019-01-29] MEDS ORDERED: MAG30ORA PO (17:22)
[2019-01-29] MEDS ORDERED: MERO1VIA3 IV (17:22)
[2019-01-29] MEDS ORDERED: MAGN400O6 PO (17:22)
[2019-01-29] MEDS ORDERED: INSU100V3 SQ (17:22)
[2019-01-29] MEDS ORDERED: BLOO-668 IN (17:22)
[2019-01-29] MEDS ORDERED: ONDA4TAB5 PO (17:22)
[2019-01-29] MEDS ORDERED: ACET-868 PO (17:22)
[2019-01-29] MEDS ORDERED: LACT1CAP72 PO (17:22)
[2019-01-29] MEDS ORDERED: HYDR-4384 PO (17:22)
[2019-01-29] MEDS ORDERED: VANC1.2526 IV (17:22)
[2019-01-29] MEDS ORDERED: ZOLP5TAB2 PO (17:22)
--- NOTE | 2019-01-29 18:00 | NUR ---
RN NOTES GET TO ORDER FROM DR PIERCE,HENRI PATIENT NPO MIDNIGHT, AND CONSENT FORM FOR SURGERY RIGHT INDEX FINGER AMPUTATION, CONTINUED VANCOMYCIN AND MERREM. CALLED AND NOTIFIED ADMITTING HOSPITALIST TROY ABOUT MEDICATION ORDERS.
[2019-01-29 18:01] VITALS: BP 126/83
--- NOTE | 2019-01-29 18:30 | NUR ---
RN NOTES PATIENT STABLE EATING DINNER, REFUSED PAIN, REFUSED PICTURE TO BE TAKEN. CALL LIGHT WITHIN TO REACH. ENDORSED ONCOMING NURSE FOLLOW PLAN OF CARE.
--- NOTE | 2019-01-29 19:15 | NUR ---
MS RN NOTE RECEIVED PT IN STABLE CONDITION A/O X4, CURRENTLY WATCHING TV. NO SIGNS OF SOB OR DISTRESS. NO C/O PAIN OR N/V. IV IN RFA #[address] ALL CURRENT NEEDS ATTENDED TO. BED, LOW, LOCKED, UPPER RAILS UP, AND CALL LIGHT WITHIN REACH. WILL CONT. TO MONITOR.
[2019-01-29] MEDS ORDERED: Z GUARD REMEDY 2 OZ OINT TP PRN (19:30)
[2019-01-29] MEDS ORDERED: ONDANSETRON HCL/PF 4 MG/2 ML VIAL IVP PRN (19:30)
[2019-01-29] MEDS ORDERED: MAGNESIUM HYDROXIDE 30 ML UDC PO PRN (19:30)
[2019-01-29] MEDS ORDERED: IV NS 0.9% 1,000 ML IV PRN (19:30)
[2019-01-29] MEDS ORDERED: MAG HYDROX/AL HYDROX/SIMETH 30 ML UDC PO PRN (19:30)
[2019-01-29] MEDS ORDERED: ACETAMINOPHEN 325 MG TABLET PO PRN (19:30)
[2019-01-29] MEDS ORDERED: ZOLPIDEM TARTRATE 5 MG TABLET PO PRN (19:30)
--- NOTE | 2019-01-29 19:45 | NUR ---
MS RN NOTE PT SIGNED PROCEDURE CONSENT AND BLOOD CONSENT. PT REFUSES TO SIGNS ANESTHESIA CONSENT. WANTS TO SPEAK WITH MD ON THE TYPE OF ANESTHESIA. WILL ENDORSE TO AM SHIFT.
[2019-01-29 20:00] VITALS: BP 140/82
[2019-01-29] MEDS ORDERED: MEROPENEM 1 G in IV NS 0.9% 100 ML IV ONE (20:00)
[2019-01-29] MEDS ORDERED: MEROPENEM 1 G VIAL IV ONE (20:15)
[2019-01-29] MEDS ORDERED: MEROPENEM 1 G in IV NS 0.9% 100 ML IV SCH (21:00)
--- NOTE | 2019-01-29 21:07 | NUR ---
MS RN NOTE ATTEMPTED TO TAKE PHOTO OF R INDEX FINGER, PT REFUSED. WILL CONT. TO MONITOR.
[2019-01-29] MEDS ORDERED: VANCOMYCIN 1.25 GM in IV D5W 250 ML IV ONE (21:30)
[2019-01-29] MEDS ORDERED: VANCOMYCIN 1 GM VIAL ONE ×2 (22:38→22:40)
[2019-01-30 06:24] LABS: CALCIUM, SERUM 8.4 mg/dL (8.5-10.1); CREATININE 0.6 mg/dL (0.6-1.3); MAGNESIUM 1.7 mg/dL (1.8-2.4); PHOSPHORUS 3.9 mg/dL (2.5-4.9); POTASSIUM 4.1 mmol/L (3.5-5.1)
--- NOTE | 2019-01-30 06:24 | NUR ---
MS RN NOTE PT REMAINS IN STABLE CONDITION A/O X4, CURRENTLY RESTING IN BED. NO SIGNS OF SOB OR DISTRESS. NO C/O PAIN OR N/V. IV IN RFA #[address] ALL CURRENT NEEDS ATTENDED TO. BED, LOW, LOCKED, UPPER RAILS UP, AND CALL LIGHT WITHIN REACH. WILL CONT. TO MONITOR AND ENDORSE TO NEXT SHIFT FOR PRATIK.
[2019-01-30 06:27] LABS: BASOPHILS % (AUTO) 0.4 % (0.0-2.0); EOSINOPHILS % (AUTO) 6.1 % (0.0-6.0); HEMATOCRIT 39 % (33-45); HEMOGLOBIN 13.1 g/dL (11.5-14.8); LYMPHOCYTES # (AUTO) 1.8 /CMM (0.8-4.8); LYMPHOCYTES % (AUTO) 31.8 % (20.0-44.0); MEAN CORPUSCULAR HGB CONC 34 g/dl (31.0-36.0); MEAN CORPUSCULAR VOLUME 92 fL (82-100); MONOCYTES # (AUTO) 0.6 /CMM (0.1-1.30); NEUTROPHILS # (AUTO) 2.9 /CMM (1.8-8.9); NEUTROPHILS % (AUTO) 51.7 % (43.0-81.0); PLATELET COUNT (AUTO) 325 /CMM (150-450); RED BLOOD CELL COUNT(AUTO) 4.25 MIL/uL (4.0-5.2); WHITE BLOOD COUNT (AUTO) 5.5 K/uL (4.3-11.0)
[2019-01-30] MEDS ORDERED: ANESTHESIA TRAY IN PYXIS 1 EA TRAY MC ONE (06:35)
[2019-01-30] MEDS ORDERED: BUPIVACAINE 0.25% 75 MG/30 ML VIAL ONE (06:36)
[2019-01-30] MEDS ORDERED: LIDOCAINE 1%-EPI 1:100,000 20 ML VIAL ONE (06:36)
[2019-01-30] MEDS ORDERED: BACITRACIN 50000 UNITS/VIAL ONE (06:36)
--- NOTE | 2019-01-30 06:41 | NUR ---
MS RN NOTE PT TAKEN TO SURGERY IN STABLE CONDITION. GERMANIA FROM SURGERY NOTIFIED THAT PT HAS NOT SIGNED ANESTHESIA CONSENT. PT WAS WILL BROUGHT DOWN. WILL ENDORSE TO NEXT SHIFT FOR PRATIK.
[2019-01-30] MEDS: MEROPENEM 1 G in IV NS 0.9% 100 ML IV SCH ×3 (06:45→21:09)
[2019-01-30] MEDS ORDERED: INSULIN REGULAR, HUMAN 100 UNIT/ML 10 ML VIAL ONE (07:16)
--- NOTE | 2019-01-30 07:45 | NUR ---
RN OPENING NOTES Received patient and she is in surgery at this time.
[2019-01-30 08:00] VITALS: BP 127/70
[2019-01-30] MEDS: VANCOMYCIN 0.75 GM in IV D5W 250 ML IV SCH ×2 (08:00→15:25)
--- NOTE | 2019-01-30 09:03 | NUR ---
RN NOTES Vanco started in the OR. 0850 finished infusing.
[2019-01-30] MEDS: LACTOBACILLUS RHAMNOSUS GG 1 EACH CAP.SPRINK PO SCH ×2 (09:23→17:20)
[2019-01-30] MEDS: TOPIRAMATE 100 MG TABLET PO SCH ×2 (09:23→17:20)
[2019-01-30] MEDS: FLUOXETINE HCL 20 MG CAPSULE PO SCH (09:23)
[2019-01-30] MEDS ORDERED: MAGNESIUM OXIDE 400 MG TABLET PO ONE ×2 (10:00→11:00)
[2019-01-30] MEDS ORDERED: FEE PK DOSING 1 MIN EA MC ONE (12:18)
[2019-01-30 16:00] VITALS: BP 127/70
--- NOTE | 2019-01-30 18:44 | NUR ---
RN closing notes Patient remains on room air, no sob noted, patient denies pain at this time. Patient denies any discomfort or pain on her s/p amputation of her R index finger. Patients vital sign stable at this time. R FA 22 remains intact. Bed at the lowest setting, call light within reach, side rails up x2. Will give report to NOC RN for PRATIK bedside.
--- NOTE | 2019-01-30 19:50 | NUR ---
MS RN OPENING NOTES PATIENT RECEIVED RESTING IN BED A/O X4. NO ACUTE DISTRESS NOTED, NO SOB, AND NO CURRENT COMPLAINTS OF PAIN. PATIENT ABLE IS AMBULATORY AND ABLE TO MAKE NEEDS KNOWN. IV LOCATED ON R FA #22 AND IT IS PATENT AND INTACT. SAFETY PRECAUTIONS IN PLACE WITH BED IN LOWEST POSITION, BREAKS ON, AND CALL LIGHT WITHIN REACH. WILL CONTINUE TO MONITOR.
[2019-01-30] MEDS: HYDROCODONE/APAP 5/325MG 1 EACH TABLET PO PRN (20:08)
[2019-01-30 20:19] VITALS: BP 148/85
[2019-01-30] MEDS ORDERED: DEXTROSE 50%-WATER 50 ML DISP.SYRIN IV PRN (21:00)
[2019-01-30] MEDS: TRAZODONE 50 MG TABLET PO SCH (21:08)
[2019-01-30] MEDS: BLOOD SUGAR DIAGNOSTIC 1 EACH STRIP IN SCH (21:24)
[2019-01-30] MEDS: INSULIN REGULAR, HUMAN 100 UNIT/ML 3 ML VIAL SQ PRN (21:31)
[2019-01-30] MEDS: INSULIN GLARGINE, 100 UNIT/ML CARTRIDGE SQ SCH (21:32)
[2019-01-31] MEDS: HYDROCODONE/APAP 5/325MG 1 EACH TABLET PO PRN ×3 (00:23→21:41)
[2019-01-31] MEDS: VANCOMYCIN 0.75 GM in IV D5W 250 ML IV SCH ×3 (00:35→22:29)
[2019-01-31 02:11] VITALS: BP 148/85
[2019-01-31] MEDS: MEROPENEM 1 G in IV NS 0.9% 100 ML IV SCH ×3 (04:30→23:51)
[2019-01-31] MEDS: BLOOD SUGAR DIAGNOSTIC 1 EACH STRIP IN SCH ×4 (06:43→21:50)
[2019-01-31] MEDS: INSULIN REGULAR, HUMAN 100 UNIT/ML 3 ML VIAL SQ PRN ×4 (06:52→21:49)
--- NOTE | 2019-01-31 07:13 | NUR ---
M/S RN CLOSING NOTES PATIENT CURRENTLY RESTING IN BED A/O x4. NO ACUTE SIGNS OF DISTRESS, SOB, AND NO CURRENT COMPLAINTS OF PAIN. IV LOCATED ON R FA #22 AND IS PATENT AND INTACT. ALL NEEDS WERE ATTENDED TO THROUGHOUT THE NIGHT. PATIENT IS ABLE TO MAKE NEEDS KNOWN AND IS AMBULATORY. SAFETY PRECAUTIONS IN PLACE WITH BED IN LOWEST POSITION, BREAKS ON, AND CALL LIGHT WITHIN REACH. WILL ENDORSE TO ONCOMING SHIFT ABOUT PRATIK.
--- NOTE | 2019-01-31 07:15 | NUR ---
M/S RN CLOSING NOTES PATIENT IS CURRENTLY RESTING IN BED A/O x4. CURRENTLY ON 2L VIA NC. PATIENT IS AMBULATORY AND ABLE TO MAKE NEEDS KNOWN. NO ACUTE SIGN OF DISTRESS AND NO COMPLAINTS OF PAIN. IV LOCATED ON LEFT WRIST #18 AND MIDLINE LEFT UPPER ARM #18. ALL NEEDS WERE ATTENDED TO AND PATIENT WAS KEPT CLEAN AND DRY. SAFETY PRECAUTIONS ARE IN PLACE WITH DIMAS IN LOWEST POSITION, CALL LIGHT WITHIN REACH, AND BREAKS ON. WILL ENDORSE TO ONCOMING NURSE ABOUT PRATIK. Addendum: 01/31/19 at 0720 by LENA WILL RN WRONG PATIENT.
[2019-01-31 07:16] LABS: BASOPHILS % (AUTO) 0.7 % (0.0-2.0); EOSINOPHILS % (AUTO) 5.5 % (0.0-6.0); HEMATOCRIT 34 % (33-45); HEMOGLOBIN 11.4 g/dL (11.5-14.8); LYMPHOCYTES # (AUTO) 0.7 /CMM (0.8-4.8); LYMPHOCYTES % (AUTO) 18.2 % (20.0-44.0); MEAN CORPUSCULAR HGB CONC 34 g/dl (31.0-36.0); MEAN CORPUSCULAR VOLUME 92 fL (82-100); MONOCYTES # (AUTO) 0.4 /CMM (0.1-1.30); NEUTROPHILS # (AUTO) 2.7 /CMM (1.8-8.9); NEUTROPHILS % (AUTO) 65.6 % (43.0-81.0); PLATELET COUNT (AUTO) 268 /CMM (150-450); RED BLOOD CELL COUNT(AUTO) 3.66 MIL/uL (4.0-5.2); WHITE BLOOD COUNT (AUTO) 4.1 K/uL (4.3-11.0)
--- NOTE | 2019-01-31 07:50 | NUR ---
MSRN RECEIVED ON BED, AWAKE,.ALERT,ORIENTED X3-4.NOT IN ANY FORM OF DISTRESS,RESPIRATIONS EVEN AND UNLABORED, NO SOB NOTED, DENIES PAIN AT THIS TIME, ALL NEEDS ATTENDED.
[2019-01-31 07:58] LABS: CALCIUM, SERUM 8.3 mg/dL (8.5-10.1); CREATININE 0.7 mg/dL (0.6-1.3); PHOSPHORUS 3.6 mg/dL (2.5-4.9); POTASSIUM 3.9 mmol/L (3.5-5.1)
[2019-01-31 08:00] VITALS: BP 119/67
[2019-01-31 08:18] LABS: MAGNESIUM 1.7 mg/dL (1.8-2.4)
[2019-01-31] MEDS ORDERED: MORPHINE SULFATE INJ 2 MG/ML DISP.SYRIN IV PRN (08:30)
[2019-01-31] MEDS: TOPIRAMATE 100 MG TABLET PO SCH ×2 (08:58→18:09)
[2019-01-31] MEDS: FLUOXETINE HCL 20 MG CAPSULE PO SCH (08:58)
[2019-01-31] MEDS: LACTOBACILLUS RHAMNOSUS GG 1 EACH CAP.SPRINK PO SCH ×2 (08:58→18:09)
--- NOTE | 2019-01-31 09:00 | NUR ---
ms rehman breakfast served,due meds given,tolerated well.
--- NOTE | 2019-01-31 10:00 | NUR ---
ms rn was seen by henny ricardo/ orders made and carried out.
[2019-01-31] MEDS: Magnesium 1GM/D5W 100ML PREMIX 100 ML IV SCH ×2 (10:57→13:08)
[2019-01-31] MEDS: GUAIFENESIN/D-METHORPHAN HB 5 ML UDC PO PRN ×2 (11:04→18:09)
--- NOTE | 2019-01-31 12:30 | NUR ---
ms rn patient refused coverage for blood sugar ,no s/s of hyperglycemia.
[2019-01-31 16:00] VITALS: BP 135/77
--- NOTE | 2019-01-31 16:00 | NUR ---
ms rn on bed. all needs attended.
--- NOTE | 2019-01-31 19:42 | NUR ---
M/S RN OPENING NOTES Patient is currently resting in bed A/O x3-4. She is ambulatory and able to make all needs known. No signs of acute distress, no sob noted, and no current complaints of pain. IV located on right FA #22. Patient has dressing on Right hand from amputation of right index finger. Safety precautions in place with bed in lwoest position, breaks on, side rails up X2, and call light within reach. Will continue to monitor.
[2019-01-31 20:00] VITALS: BP 123/62
[2019-01-31] MEDS: TRAZODONE 50 MG TABLET PO SCH (21:40)
--- NOTE | 2019-01-31 21:50 | NUR ---
M/S RN NOTES Blood sugar checked and showed 197, covered with 3 units of insulin per sliding scale. 13 units of lantus given as well as scheduled. Will continue to monitor.
[2019-01-31] MEDS: INSULIN GLARGINE, 100 UNIT/ML CARTRIDGE SQ SCH (21:55)
[2019-02-01] MEDS: MEROPENEM 1 G in IV NS 0.9% 100 ML IV SCH ×2 (05:39→13:33)
[2019-02-01] MEDS: BLOOD SUGAR DIAGNOSTIC 1 EACH STRIP IN SCH ×3 (06:31→18:15)
[2019-02-01] MEDS: INSULIN REGULAR, HUMAN 100 UNIT/ML 3 ML VIAL SQ PRN ×2 (06:33→13:31)
--- NOTE | 2019-02-01 06:52 | NUR ---
M/S RN CLOSING NOTES PATIENT CURRENTLY RESTING IN BED A/O x4. NO ACUTE SIGNS OF DISTRESS, SOB, AND NO CURRENT COMPLAINTS OF PAIN. IV LOCATED ON R FA #22 AND IS PATENT AND INTACT. ALL NEEDS WERE ATTENDED TO THROUGHOUT THE NIGHT. RIGHT DRESSING LOCATED ON RIGHT HAND. PATIENT IS ABLE TO MAKE NEEDS KNOWN AND IS AMBULATORY. SAFETY PRECAUTIONS IN PLACE WITH BED IN LOWEST POSITION, BREAKS ON, AND CALL LIGHT WITHIN REACH. WILL ENDORSE TO ONCOMING SHIFT ABOUT PRATIK.
[2019-02-01 07:13] LABS: BASOPHILS % (AUTO) 0.6 % (0.0-2.0); EOSINOPHILS % (AUTO) 3.8 % (0.0-6.0); HEMATOCRIT 36 % (33-45); HEMOGLOBIN 12.3 g/dL (11.5-14.8); LYMPHOCYTES % (AUTO) 26.1 % (20.0-44.0); MEAN CORPUSCULAR HGB CONC 34 g/dl (31.0-36.0); MEAN CORPUSCULAR VOLUME 91 fL (82-100); MONOCYTES # (AUTO) 0.4 /CMM (0.1-1.30); MONOCYTES % (AUTO) 10.9 % (2.0-12.0); NEUTROPHILS # (AUTO) 2.1 /CMM (1.8-8.9); NEUTROPHILS % (AUTO) 58.6 % (43.0-81.0); PLATELET COUNT (AUTO) 254 /CMM (150-450); RED BLOOD CELL COUNT(AUTO) 3.96 MIL/uL (4.0-5.2); WHITE BLOOD COUNT (AUTO) 3.6 K/uL (4.3-11.0)
--- NOTE | 2019-02-01 07:40 | NUR ---
MS RN RECEIVED ON BED, AWAKE,ALERT,ORIENTEDX4,NOT IN ANY FORM OF DISTRESS, RESPIRATIONS EVEN AND UNLABORED,NO SOB NOTED, LUNGS ARE CLEAR,ABDOMEN SOFT,POSITIVE BOWEL SOUNDS DENIES PAIN AT THIS TIME,WILL MONITOR PATIENT'S CONDITION.
[2019-02-01 07:50] LABS: CALCIUM, SERUM 8.2 mg/dL (8.5-10.1); CREATININE 0.7 mg/dL (0.6-1.3); MAGNESIUM 1.9 mg/dL (1.8-2.4); POTASSIUM 3.8 mmol/L (3.5-5.1)
[2019-02-01 08:00] VITALS: BP 117/76
--- NOTE | 2019-02-01 08:30 | NUR ---
MS BUCK BREAKFAST SERVED DUE MEDS GIVEN, TOLERATED WELL.
[2019-02-01] MEDS: TOPIRAMATE 100 MG TABLET PO SCH ×2 (10:32→18:15)
[2019-02-01] MEDS: LACTOBACILLUS RHAMNOSUS GG 1 EACH CAP.SPRINK PO SCH ×2 (10:32→18:15)
[2019-02-01] MEDS: FLUOXETINE HCL 20 MG CAPSULE PO SCH (10:33)
[2019-02-01] MEDS: GUAIFENESIN/D-METHORPHAN HB 5 ML UDC PO PRN ×2 (10:33→18:15)
[2019-02-01] MEDS: VANCOMYCIN 0.75 GM in IV D5W 250 ML IV SCH (10:35)
[2019-02-01] MEDS: HYDROCODONE/APAP 5/325MG 1 EACH TABLET PO PRN ×2 (10:49→18:16)
--- NOTE | 2019-02-01 14:00 | NUR ---
MS RN ON BED,NO DISTRESS NOTED.
[2019-02-01 16:00] VITALS: BP 118/74
--- NOTE | 2019-02-01 19:30 | NUR ---
RN NOTES RECEIVED PT. AWAKE , A/OX3, WAITING FOR THE AMBULANCE TO BE PICK-UP, NOT IN DISTRESS NO PAIN NOTED, CALL LIGHT WITHIN REACH, [id number], CONTINUE TO MONITOR
--- NOTE | 2019-02-01 21:10 | NUR ---
RN NOTES PT. LEFT VIA AMBULANCE ON STABLE CONDITION, PT. REFUSED TO SIGN THE BELONGINGS LIST AND REFUSED HER BAGS TO BE CHECKED
--- NOTE | 2019-02-01 22:10 | NUR ---
RN NOTES no picture where taken upon D/C, IST dressing will be change by the surgeon
== END 2019-02-01 21:10 | DRG 988 ==
LOC: MED 17:06
PROVIDERS: ADMIT Nurse Practitioner Acute Care
PROC: 0X6N0Z1 Detachment at Right Index Finger, High, Open Approach (ICD-10-PCS; principal; 2019-01-30)
DX: E11.69 Type 2 diabetes mellitus with other specified complication (principal); M86.8X4 Other osteomyelitis, hand; M00.9 Pyogenic arthritis, unspecified; N17.0 Acute kidney failure with tubular necrosis; E11.65 Type 2 diabetes mellitus with hyperglycemia; G40.909 Epilepsy, unspecified, not intractable, without status epilepticus; E83.42 Hypomagnesemia; F17.210 Nicotine dependence, cigarettes, uncomplicated; F32.9 Major depressive disorder, single episode, unspecified; Z79.4 Long term (current) use of insulin; L03.011 Cellulitis of right finger; G89.29 Other chronic pain; F15.11 Other stimulant abuse, in remission; Z79.84 Long term (current) use of oral hypoglycemic drugs
CPT/HCPCS: 36415; 71045-TC; 80048-TC; 80061-TC; 80202-TC; 82962-TC; 83735-TC; 84100-TC; 85025-TC; 85730-TC; 86850-TC; 87081-TC; 88305-TC; 88311-TC; 88312-TC; G0378; J1100; J1815; J2185; J3370; J3475; J3490; J7030; J7060

== ENCOUNTER 2019-02-02 14:55 | Emergency (ER) | payer MEDICARE ==
[~2019-02-02] VITALS: Ht 165.1 cm; Wt 53.5 kg
[~2019-02-02 14:55] MED LIST changes: +ACET-868 PO; +BLOO-668 IN; -EMPA25TA PO; +HYDR-4384 PO; +INSU100V3 SQ; +LACT1CAP72 PO; +MAG30ORA PO; +MAGN400O6 PO; -METF-440 PO; +ONDA4TAB5 PO; -TRAZ-257 PO; +ZOLP5TAB2 PO
--- NOTE | 2019-02-02 15:07 | NUR ---
PT AAOX4. BIBPA FROM SNF FOR PICC LINE PLACEMENT. DRESSING NOTED ON R HAND SP FINGER AMPUTATION. MD AT BEDSIDE. NO ACUTE DISTRESS NOTED. PLACED IN GOWN AND MONITOR.
--- NOTE | 2019-02-02 15:21 | NUR ---
PATIENT SIGNED CONSENT FOR PICC LINE
--- NOTE | 2019-02-02 16:06 | NUR ---
PICC LINE NURSE AT BEDSIDE
--- NOTE | 2019-02-02 16:57 | NUR ---
CALLED [facility] FOR TRANSPORT TO [facility]. ETA 1830. TRIP NUMBER [id number].
--- NOTE | 2019-02-02 17:00 | NUR ---
CALLED [facility] FOR S TRANSPORT. ETA 1730.
--- NOTE | 2019-02-02 18:28 | NUR ---
Patient picked up by [facility] in stable condition. Patient will be brought back to [facility]. Written and verbal after care instructions given. Patient verbalizes understanding of instruction.
[2019-02-02 18:29] VITALS: BP 118/72
== END 2019-02-02 18:30 ==
LOC: ER 14:58
DX: Z45.2 Encounter for adjustment and management of vascular access device (principal); E11.9 Type 2 diabetes mellitus without complications; F17.200 Nicotine dependence, unspecified, uncomplicated; Z79.899 Other long term (current) drug therapy; Z79.4 Long term (current) use of insulin; Z79.84 Long term (current) use of oral hypoglycemic drugs
CPT/HCPCS: 36569; 99285; C1751

== ENCOUNTER 2019-10-18 07:49 | Emergency (ER) | payer MEDICARE, MEDICAID ==
[~2019-10-18] VITALS: Ht 165.1 cm; Wt 51.3 kg
[~2019-10-18 07:49] MED LIST changes: -FLUO20CA40 PO; +FLUO20CA42 PO
[2019-10-18 07:55] VITALS: BP 132/79
--- NOTE | 2019-10-18 08:09 | NUR ---
Patient does not want IVP insertion and giving fluids. Patient eloped from facility. ER MD notified.
[2019-10-18] MEDS ORDERED: IV NS 0.9% 1,000 ML IV ONE (08:30)
[2019-10-18] MEDS ORDERED: KETOROLAC TROMETHAMINE INJ 30 MG/ML VIAL IV ONE (08:30)
== END 2019-10-18 08:10 | disposition left against medical advice (07) ==
LOC: ER 07:49
DX: R20.2 Paresthesia of skin (principal); E11.65 Type 2 diabetes mellitus with hyperglycemia; M86.9 Osteomyelitis, unspecified; F17.200 Nicotine dependence, unspecified, uncomplicated; G40.909 Epilepsy, unspecified, not intractable, without status epilepticus; Z79.899 Other long term (current) drug therapy; Z79.4 Long term (current) use of insulin; Z59.0 Homelessness
CPT/HCPCS: 82962-TC; J7030

== ENCOUNTER 2019-11-27 19:26 | Inpatient (IN) | payer MEDICARE, OTHER ==
[~2019-11-27] VITALS: Ht 165.1 cm; Wt 49.9 kg
--- NOTE | 2019-11-27 19:55 | NUR ---
XRAY AT BESIDE
[2019-11-27 19:58] LABS: BASOPHILS # (AUTO) 0.1 /CMM (0.0-0.2); EOSINOPHILS % (AUTO) 1.6 % (0.0-6.0); HEMATOCRIT 41 % (33-45); HEMOGLOBIN 13.9 g/dL (11.5-14.8); LYMPHOCYTES # (AUTO) 2.5 /CMM (0.8-4.8); LYMPHOCYTES % (AUTO) 32.3 % (20.0-44.0); MEAN CORPUSCULAR HGB CONC 34 g/dl (31.0-36.0); MEAN CORPUSCULAR VOLUME 92 fL (82-100); MONOCYTES # (AUTO) 0.4 /CMM (0.1-1.30); MONOCYTES % (AUTO) 5.7 % (2.0-12.0); NEUTROPHILS # (AUTO) 4.6 /CMM (1.8-8.9); NEUTROPHILS % (AUTO) 59.4 % (43.0-81.0); PLATELET COUNT (AUTO) 276 /CMM (150-450); WHITE BLOOD COUNT (AUTO) 7.7 K/uL (4.3-11.0)
--- NOTE | 2019-11-27 20:00 | NUR ---
JOSE ANTONIO FROM STREET TO ER BED 6. AAOX4. NOT IN RESP DISTRESS. BROUGHT IN FOR BILAT HAND AND FOOT PAIN. PT IS VERBALIZING THAT SHE MIGHT HAVE AN INFECTION AND AFRAID THAT SHE MIGHT LOOSE HER FINGER AGAIN. PT ALSO STATES THAT SHE HAS MULTIPLE PAINFULL BUMP AT THE BACK OF HER THIGH. WAS AT THE BEDSIDE FOR EVAL. ORDERS RECEIVED NOTED AND CARRIED OUT. IV LINE ESTABLISHED ON L AC 20G. BLOOD DRAWN AND GIVEN TO TRAINING AND QUALITY MANAGER
--- NOTE | 2019-11-27 20:24 | NUR ---
PT'S SON PHONE NUMBER [phone]
[2019-11-27 20:25] LABS: ALANINE AMINOTRANSFERASE 34 U/L (12-78); ALBUMIN 3.7 g/dL (3.4-5.0); ALKALINE PHOSPHATASE 135 U/L (46-116); ASPARTATE AMINOTRANSFERASE 19 U/L (15-37); BILIRUBIN,DIRECT 0.1 mg/dL (0.0-0.2); BILIRUBIN,TOTAL 0.5 mg/dL (0.2-1.0); CALCIUM, SERUM 8.5 mg/dL (8.5-10.1); CARBON DIOXIDE 23 mmol/L (21-32); CHLORIDE 97 mmol/L (98-107); CREATININE 1.1 mg/dL (0.6-1.3); GLUCOSE 577 mg/dL (74-106); POTASSIUM 3.6 mmol/L (3.5-5.1); SODIUM SERUM 133 mmol/L (136-145); TOTAL PROTEIN, SERUM 7.7 g/dL (6.4-8.2); UREA NITROGEN, BLOOD 14 mg/dL (7-18)
[2019-11-27] MEDS ORDERED: IV NS 0.9% 1,000 ML IV ONE ×2 (20:30)
[2019-11-27] MEDS ORDERED: PIPERACILLIN /TAZOBACTAM 3.375 G in IV D5W 50 ML IV ONE (21:00)
[2019-11-27] MEDS ORDERED: VANCOMYCIN 1 GM in IV D5W 250 ML IV ONE (21:00)
[2019-11-27] MEDS ORDERED: LIDOCAINE 1%-EPI 1:100,000 20 ML VIAL ONE (21:33)
[2019-11-27] MEDS ORDERED: PIPERACILLIN /TAZOBACTAM 3.375 G VIAL IV ONE (21:35)
[2019-11-27] MEDS ORDERED: VANCOMYCIN 1 GM VIAL ONE (21:35)
--- NOTE | 2019-11-27 22:11 | NUR ---
MADE AWARE OF BS 371. NO NEW ORDERS RECEIVED
--- NOTE | 2019-11-27 23:15 | NUR ---
NEGATIVE COVID RESULTS CALLED IN
[2019-11-27] MEDS ORDERED: ZOLPIDEM TARTRATE 5 MG TABLET PO PRN ×2 (23:30)
[2019-11-27] MEDS ORDERED: Z GUARD REMEDY 2 OZ OINT TP PRN (23:30)
[2019-11-27] MEDS ORDERED: ACETAMINOPHEN 325 MG TABLET PO PRN (23:30)
[2019-11-27] MEDS ORDERED: MAGNESIUM HYDROXIDE 30 ML UDC PO PRN (23:30)
[2019-11-27] MEDS ORDERED: DEXTROSE 50%-WATER 50 ML DISP.SYRIN IV PRN (23:30)
[2019-11-27] MEDS ORDERED: MAG HYDROX/AL HYDROX/SIMETH 30 ML UDC PO PRN (23:30)
[2019-11-27] MEDS ORDERED: HYDROCODONE/APAP 5/325MG TABLET PO PRN (23:30)
[2019-11-27] MEDS ORDERED: ONDANSETRON HCL/PF 4 MG/2 ML VIAL IVP PRN (23:30)
--- NOTE | 2019-11-27 23:44 | NUR ---
REPORT GIVEN TO HEBER MARIN FOR PRATIK.
--- NOTE | 2019-11-27 23:45 | NUR ---
MS/RN NOTES REPORT RECEIVED FROM PROFESSOR CRIMIN[employer] JUSTICE JAVIER. PATIENT WILL BE COMING TO ROOM 324-2.
--- NOTE | 2019-11-28 00:29 | NUR ---
PT TO 3W VIA LES.
[2019-11-28 00:30] VITALS: BP 130/76
[2019-11-28 01:00] VITALS: BP 130/76
--- NOTE | 2019-11-28 01:00 | NUR ---
MS/RN OPENING NOTES PATIENT ARRIVED ON UNIT AT 0030. NO INJURIES SUSTAINED DURING TRANSFER. PATIENT IS ALERT AND ORIENTED X 4. NO SIGNS OF SOB OR RESPIRATORY DISTRESS NOTED. BREATHING IS EVEN AND UNLABORED. PATIENT HAS IV ACCESS ON LEFT ARM #20 G INTACT. PATIENT DECLINED TO HAVE SKIN ASSESSED AT THIS TIME, RISK AND BENEFITS EXPLAINED WILL ASK PATIENT AT A LATER TIME. PATIENT STATED NO PAIN AT THE MOMENT. PATIENT STATED SHE IS HOMELESS. PATIENT SAID SHE DOESN'T WANT HER BELONGINGS LOOKED OVER AT THIS TIME. PATIENT SHOWS NO SIGNS OF DISTRESS. SAFETY MEASURES ARE IN PLACE, BED IS LOCKED AND PLACED IN THE LOW POSITION, SIDE RAILS UP X 2. CALL LIGHT IS WITHIN REACH. WILL CONTINUE TO MONITOR.
[2019-11-28] MEDS: IV NS 0.9% 1,000 ML IV PRN (01:42)
[2019-11-28] MEDS ORDERED: ZOSYN IVPB 3.375 G in IV D5W 50ml IV SCH (03:30)
[2019-11-28] MEDS ORDERED: PIPERACILLIN /TAZOBACTAM 3.375 G VIAL IV ONE (04:44)
[2019-11-28] MEDS: INSULIN REGULAR, HUMAN 100 UNIT/ML 3 ML VIAL SQ PRN ×3 (06:34→17:31)
--- NOTE | 2019-11-28 06:45 | NUR ---
MS/RN CLOSING NOTES PATIENT IS IN BED RESTING. PATIENT IS ALERT AND ORIENTED X 4. NO SIGNS OF SOB OR RESPIRATORY DISTRESS NOTED. BREATHING IS EVEN AND UNLABORED. PATIENT HAS IV ACCESS ON LEFT ARM #20 G INTACT RUNNING NS 75 ML/HR. PATIENT DECLINED TO HAVE SKIN ASSESSED DURING THIS SHIFT, RISK AND BENEFITS EXPLAINED. PATIENT STATED NO PAIN AT THE MOMENT. PATIENT SHOWS NO SIGNS OF DISTRESS. SAFETY MEASURES ARE IN PLACE, BED IS LOCKED AND PLACED IN THE LOW POSITION, SIDE RAILS UP X 2. CALL LIGHT IS WITHIN REACH. WILL ENDORSE CARE TO DAY SHIFT.
[2019-11-28] MEDS ORDERED: BLOOD SUGAR DIAGNOSTIC 1 EACH STRIP IN SCH (07:30)
[2019-11-28 07:42] LABS: BASOPHILS % (AUTO) 0.8 % (0.0-2.0); EOSINOPHILS % (AUTO) 3.3 % (0.0-6.0); HEMATOCRIT 37 % (33-45); HEMOGLOBIN 12.6 g/dL (11.5-14.8); LYMPHOCYTES # (AUTO) 1.8 /CMM (0.8-4.8); LYMPHOCYTES % (AUTO) 29.1 % (20.0-44.0); MEAN CORPUSCULAR HGB CONC 34 g/dl (31.0-36.0); MEAN CORPUSCULAR VOLUME 92 fL (82-100); MONOCYTES # (AUTO) 0.3 /CMM (0.1-1.30); MONOCYTES % (AUTO) 5.2 % (2.0-12.0); NEUTROPHILS # (AUTO) 3.8 /CMM (1.8-8.9); NEUTROPHILS % (AUTO) 61.6 % (43.0-81.0); PLATELET COUNT (AUTO) 225 /CMM (150-450); RED BLOOD CELL COUNT(AUTO) 4.09 MIL/uL (4.0-5.2); WHITE BLOOD COUNT (AUTO) 6.1 K/uL (4.3-11.0)
[2019-11-28 08:00] VITALS: BP 118/70
[2019-11-28] MEDS: LACTOBACILLUS RHAMNOSUS GG 1 EACH CAP.SPRINK PO SCH ×2 (09:33→17:16)
[2019-11-28] MEDS: PANTOPRAZOLE 40 MG TABLET.DR PO SCH (09:33)
[2019-11-28] MEDS: FLUOXETINE HCL 20 MG CAPSULE PO SCH (09:34)
[2019-11-28] MEDS: TOPIRAMATE 100 MG TABLET PO SCH ×2 (09:34→17:16)
[2019-11-28 10:17] LABS: CALCIUM, SERUM 8.3 mg/dL (8.5-10.1); CREATININE 0.6 mg/dL (0.6-1.3); MAGNESIUM 1.7 mg/dL (1.8-2.4); POTASSIUM 3.5 mmol/L (3.5-5.1)
[2019-11-28] MEDS: VANCOMYCIN HCL 0.75 GM in IV D5W 250 ML IV SCH ×2 (10:35→21:23)
[2019-11-28] MEDS: BLOOD SUGAR DIAGNOSTIC 1 EACH STRIP VI SCH ×3 (12:00→21:23)
[2019-11-28] MEDS: ZOSYN IVPB 3.375 G in IV D5W 50ml IV SCH ×3 (12:13→23:54)
--- NOTE | 2019-11-28 13:26 | NUR ---
NURSES NOTES Patient agitated. Per patient, scrubbing skin and "things are coming out" Patient states she is not being helped and "people are doing things to her". Patient unable to explain what she believes is being done to her. Was able to calm patient down and put her at ease. Patient agrees to continue treatment ordered by physicians while in hospital.
[2019-11-28 14:44] LABS: THYROID STIMULATING HORMONE 0.726 uIU/mL (0.358-3.74)
[2019-11-28 16:00] VITALS: BP 120/71
--- NOTE | 2019-11-28 19:40 | NUR ---
MS HEBER OPEN NOTES PATIENT IS IN BED. A/O X4. ON RA, NO SOB/ ACUTE RESPIRATORY DISTRESS NOTED. IV IN L AC #20G IS PATENT AND INTACT. DENIES ANY PAIN AT THE MOMENT. BED IS IN LOWEST LOCKED POSITION WITH SIDE RAILS UP X2, SEMI FOWLERS. PT IS AMBULATORY. CALL LIGHT IS WITHIN REACH. WILL CONTINUE TO MONITOR.
[2019-11-28 20:52] VITALS: BP 129/78
[2019-11-28] MEDS: *INSULIN REGULAR(HUMULIN R)HUM 100 UNIT/ML VIAL SQ PRN (21:24)
[2019-11-28] MEDS: INSULIN GLARGINE, 100 UNIT/ML CARTRIDGE SQ SCH (21:36)
[2019-11-29] MEDS: ZOSYN IVPB 3.375 G in IV D5W 50ml IV SCH ×4 (05:04→23:51)
[2019-11-29] MEDS: IV NS 0.9% 1,000 ML IV PRN (05:36)
[2019-11-29] MEDS: BLOOD SUGAR DIAGNOSTIC 1 EACH STRIP VI SCH ×4 (06:36→21:50)
[2019-11-29] MEDS: INSULIN REGULAR, HUMAN 100 UNIT/ML 3 ML VIAL SQ PRN ×2 (06:42→16:42)
--- NOTE | 2019-11-29 06:58 | NUR ---
MS RN CLOSE NOTES PATIENT IS WATCHING TV IN BED. A/O X4. ON RA, NO SOB/ ACUTE RESPIRATORY DISTRESS NOTED. IV IN L AC# 20G IS PATENT AND INTACT RUNNING NS @ 75MLS/HR. HAS NO COMPLAINTS OF PAIN AT THE MOMENT. PATIENT IS ABLE TO AMBULATE. BED IS IN LOWEST LOCKED POSITION WITH SIDE RAILS UP X2, SEMI FOWLERS. CALL LIGHT IS WITHIN REACH. WILL ENDORSE TO AM NURSE.
--- NOTE | 2019-11-29 07:36 | NUR ---
RN NOTES RECEIVED PATIENT IN BED RESTING COMFORTABLY IN MODERATE HIGH BACK REST. A/O X4. ON RA, NO S/S OF DISTRESS NOTED AT THIS TIME. IV IN L AC# 20G IS PATENT AND INTACT RUNNING NS @ 75MLS/HR. SAFETY MEASURES IN PLACE,. BED IS IN LOWEST LOCKED POSITION WITH SIDE RAILS UP X2. CALL LIGHT IS WITHIN REACH. WILL CONTINUE TO MONITOR.
[2019-11-29 08:00] VITALS: BP 118/67
[2019-11-29 09:02] LABS: CALCIUM, SERUM 8.2 mg/dL (8.5-10.1); CREATININE 0.8 mg/dL (0.6-1.3); POTASSIUM 3.4 mmol/L (3.5-5.1)
[2019-11-29] MEDS: PANTOPRAZOLE 40 MG TABLET.DR PO SCH (09:02)
[2019-11-29] MEDS: FLUOXETINE HCL 20 MG CAPSULE PO SCH (09:02)
[2019-11-29] MEDS: TOPIRAMATE 100 MG TABLET PO SCH ×2 (09:02→16:11)
[2019-11-29] MEDS: LACTOBACILLUS RHAMNOSUS GG 1 EACH CAP.SPRINK PO SCH ×2 (09:02→16:11)
[2019-11-29] MEDS ORDERED: POTASSIUM CHLORIDE 20 MEQ TAB.PRT.SR PO SCH (11:00)
[2019-11-29] MEDS: MINERAL OIL/PETROLATUM,WHITE 120 GM JAR TP SCH (12:13)
[2019-11-29] MEDS: VANCOMYCIN HCL 0.75 GM in IV D5W 250 ML IV SCH ×2 (12:13→21:52)
[2019-11-29 16:00] VITALS: BP 118/67
--- NOTE | 2019-11-29 18:37 | NUR ---
RN NOTES PATIENT IN BED RESTING COMFORTABLY IN MODERATE HIGH BACK REST. A/O X4. ON RA, NO S/S OF DISTRESS NOTED THROUGHOUT THE SHIFT. IV IN RFA# 20G IS PATENT AND INTACT RUNNING NS @ 75MLS/HR. SAFETY MEASURES IN PLACE,. BED IS IN LOWEST LOCKED POSITION WITH SIDE RAILS UP X2. CALL LIGHT IS WITHIN REACH. WILL ENDORSE TO VESSEL SCRAPPER NURSE FOR PRATIK.
[2019-11-29 20:00] VITALS: BP 132/82
--- NOTE | 2019-11-29 20:21 | NUR ---
MS/TELE/RN DURING INITIAL SHIFT ROUNDING, PATIENT WAS IN BED AWAKE, ALERT, ORIENTED, COMFORTABLE, NO C/O PAIN, NO SIGNS DISTRESS, CALL LIGHT IN REACH. WILL MONITOR.
[2019-11-29] MEDS: INSULIN GLARGINE, 100 UNIT/ML CARTRIDGE SQ SCH (21:22)
[2019-11-29] MEDS: *INSULIN REGULAR(HUMULIN R)HUM 100 UNIT/ML VIAL SQ PRN (21:25)
[2019-11-30] MEDS: ZOSYN IVPB 3.375 G in IV D5W 50ml IV SCH ×2 (06:06→12:11)
[2019-11-30] MEDS: IV NS 0.9% 1,000 ML IV PRN (06:06)
[2019-11-30] MEDS: INSULIN REGULAR, HUMAN 100 UNIT/ML 3 ML VIAL SQ PRN ×2 (06:50→12:25)
[2019-11-30] MEDS: BLOOD SUGAR DIAGNOSTIC 1 EACH STRIP VI SCH ×2 (06:53→12:11)
--- NOTE | 2019-11-30 06:54 | NUR ---
MS/TELE/RN PATIENT IS AWAKE, COMFORTABLE, NO C/O PAIN, NO DISTRESS NOTED, GOOD SLEEP NOTED THE WHOLE SHIFT, ALL NEEDS ATTENDED AT THIS TIME, WILL CONTINUE TO MONITOR.
--- NOTE | 2019-11-30 07:30 | NUR ---
MS/RN Opening note Patient received from nightshift. A/O X4, vital signs stable, denies any pain or discomfort at this time. Dressing to left thigh clean and dry. Heplock to left AC flushing well with normal saline, no signs of any infiltration. Call light within reach, safety measures in place, will continue to monitor and ensure safety.
[2019-11-30 07:52] LABS: CALCIUM, SERUM 8.1 mg/dL (8.5-10.1); CREATININE 0.8 mg/dL (0.6-1.3); POTASSIUM 3.5 mmol/L (3.5-5.1)
[2019-11-30 08:00] VITALS: BP 120/75
[2019-11-30] MEDS: TOPIRAMATE 100 MG TABLET PO SCH (08:04)
[2019-11-30] MEDS: LACTOBACILLUS RHAMNOSUS GG 1 EACH CAP.SPRINK PO SCH (08:04)
[2019-11-30] MEDS: PANTOPRAZOLE 40 MG TABLET.DR PO SCH (08:04)
[2019-11-30] MEDS: MINERAL OIL/PETROLATUM,WHITE 120 GM JAR TP SCH (08:05)
[2019-11-30] MEDS: FLUOXETINE HCL 20 MG CAPSULE PO SCH (08:05)
--- NOTE | 2019-11-30 08:26 | NUR ---
MS/RN Medications Morning medications administered as ordered, denies pain.
[2019-11-30] MEDS: VANCOMYCIN HCL 0.75 GM in IV D5W 250 ML IV SCH (09:17)
--- NOTE | 2019-11-30 09:36 | NUR ---
MS/granite block paver paperwork Exit care prepared ready for discharge later today.
--- NOTE | 2019-11-30 10:00 | NUR ---
MS/medicare biller Wound care at bedside, repacked with 1/4' iodosorb strips, picture taken and placed in chart.
--- NOTE | 2019-11-30 12:45 | NUR ---
MS/RN Exit care Exit care paperwork signed by patient, copies made and placed in chart.
--- NOTE | 2019-11-30 13:03 | NUR ---
MS/RN Report Report called to King at [facility], patient will be going to room 55C.
--- NOTE | 2019-11-30 13:06 | NUR ---
MS/RN Blood sugar Blood sugar at noon 226, as per sliding scale, six units regular insulin given.
--- NOTE | 2019-11-30 14:55 | NUR ---
MS/liquor tester Report given to paramedics at bedside, provided with packet containing copies of both medical record and exit care. Heplock intact and at request of facility left in place as patient to continue with IVAB for total seven days. All personal belongings with patient and accounted for on belongings list. Name bands removed. Left facility via ambulance accompanied by two paramedics. Report previously called to King at [facility].
== END 2019-11-30 14:30 | DRG 638 ==
LOC: ER 19:28 → MED 23:22
PROVIDERS: ATTEND Internal Medicine
DX: E11.00 Type 2 diabetes mellitus with hyperosmolarity without nonketotic hyperglycemic-hyperosmolar coma (NKHHC) (principal); L03.116 Cellulitis of left lower limb; G40.909 Epilepsy, unspecified, not intractable, without status epilepticus; L02.222 Furuncle of back [any part, except buttock and flank]; E11.65 Type 2 diabetes mellitus with hyperglycemia; F32.9 Major depressive disorder, single episode, unspecified; Z79.4 Long term (current) use of insulin; Z79.899 Other long term (current) drug therapy; Z89.021 Acquired absence of right finger(s); G89.29 Other chronic pain; Z72.0 Tobacco use; F15.11 Other stimulant abuse, in remission; F29 Unspecified psychosis not due to a substance or known physiological condition; M19.90 Unspecified osteoarthritis, unspecified site
CPT/HCPCS: 36415; 71045-TC; 73120-TC; 80048-TC; 80061-TC; 80076-TC; 80202-TC; 82962-TC; 83605-TC; 83735-TC; 84100-TC; 84443-TC; 84484-TC; 85025-TC; 85730-TC; 87040-TC; 87070-TC; 87081-TC; A6253; A6403; A6407; C9803; G0378; J1815; J2543; J3370; J3490; J7030; J7060

== ENCOUNTER 2019-12-23 08:56 | Emergency (ER) | payer MEDICARE, OTHER ==
[~2019-12-23] VITALS: Ht 165.1 cm; Wt 57.6 kg
--- NOTE | 2019-12-23 09:10 | NUR ---
BED 7 PT BIB SELF C/O OF GENERALIZED BODY ACHES. VS CHECKED. PT IS AFEBRILE. DENIES ANY FEVER IN THE LAST FEW DAYS. NOTED WITH MILD CONGESTION AND COUGH. AWAITING MD SANTOS.
[2019-12-23] MEDS ORDERED: ACETAMINOPHEN ES 500 MG TABLET PO ONE (09:30)
--- NOTE | 2019-12-23 09:33 | NUR ---
BS IS 530 2ND TIME BS WAS RE-CHECKED. NOTIFIED.
[2019-12-23 09:47] LABS: ABG BASE EXCESS 2.2 mmol/L; ABG OXYGEN SATURATION 90.4 % (92.0-98.5); ABG PCO2 40.7 mmHg (35.0-45.0); ABG PH 7.433 (7.350-7.450); ABG PO2 58.2 mmHg (75.0-100.0); COHb 6.8 % (0.5-1.5); MetHb 0.2 % (0.0-1.5); O2Hb 84.1 % (94.0-97.0); SITE, ABG Other; VENT MODE, BG ra
[2019-12-23] MEDS ORDERED: INSULIN REGULAR, HUMAN 100 UNIT/ML 10 ML VIAL ONE (09:51)
[2019-12-23] MEDS ORDERED: ACETAMINOPHEN ES 500 MG TABLET ONE (09:51)
[2019-12-23] MEDS: IV NS 0.9% 1,000 ML BAG IV ONE ×2 (09:53→10:28)
[2019-12-23] MEDS ORDERED: INSULIN REGULAR, HUMAN 100 UNIT/ML 10 ML VIAL IV ONE (10:00)
[2019-12-23] MEDS ORDERED: IV NS 0.9% 1,000 ML BAG IV ONE (10:00)
[2019-12-23 10:01] LABS: CALCIUM, SERUM 9.4 mg/dL (8.5-10.1); CREATININE 0.9 mg/dL (0.6-1.3); POTASSIUM 3.8 mmol/L (3.5-5.1)
[2019-12-23 10:06] LABS: ALBUMIN 3.6 g/dL (3.4-5.0); BILIRUBIN,DIRECT 0.1 mg/dL (0.0-0.2); BILIRUBIN,TOTAL 0.7 mg/dL (0.2-1.0); TOTAL PROTEIN, SERUM 7.5 g/dL (6.4-8.2)
[2019-12-23 11:00] LABS: BASOPHILS # (AUTO) 0.1 /CMM (0.0-0.2); BASOPHILS % (AUTO) 0.7 % (0.0-2.0); EOSINOPHILS % (AUTO) 1.4 % (0.0-6.0); HEMATOCRIT 40 % (33-45); HEMOGLOBIN 13.2 g/dL (11.5-14.8); LYMPHOCYTES # (AUTO) 1.9 /CMM (0.8-4.8); LYMPHOCYTES % (AUTO) 24.7 % (20.0-44.0); MEAN CORPUSCULAR HGB CONC 33 g/dl (31.0-36.0); MEAN CORPUSCULAR VOLUME 92 fL (82-100); MONOCYTES # (AUTO) 0.4 /CMM (0.1-1.30); MONOCYTES % (AUTO) 4.6 % (2.0-12.0); NEUTROPHILS # (AUTO) 5.2 /CMM (1.8-8.9); NEUTROPHILS % (AUTO) 68.6 % (43.0-81.0); PLATELET COUNT (AUTO) 251 /CMM (150-450); RED BLOOD CELL COUNT(AUTO) 4.33 MIL/uL (4.0-5.2); WHITE BLOOD COUNT (AUTO) 7.6 K/uL (4.3-11.0)
--- NOTE | 2019-12-23 12:10 | NUR ---
IV removed. Catheter intact and site benign. Pressure and 4x4 applied to site. No bleeding noted. Patient given written and verbal discharge instructions. Patient verbalizes understanding of instructions. Patient is ambulatory with steady gait. Refuses offer of [facility] placement. Patient given list of available shelters in surrounding area.
[2019-12-23 12:16] VITALS: BP 151/88
== END 2019-12-23 12:17 | disposition home or self-care (01) ==
LOC: ER 09:03
DX: E11.65 Type 2 diabetes mellitus with hyperglycemia (principal); M13.842 Other specified arthritis, left hand; M13.841 Other specified arthritis, right hand; F17.200 Nicotine dependence, unspecified, uncomplicated; G89.29 Other chronic pain; M54.9 Dorsalgia, unspecified; F32.9 Major depressive disorder, single episode, unspecified; G40.909 Epilepsy, unspecified, not intractable, without status epilepticus; Z98.890 Other specified postprocedural states; Z79.899 Other long term (current) drug therapy; Z79.4 Long term (current) use of insulin
CPT/HCPCS: 36415; 36600; 73130 ×2; 80048; 80076; 80307; 80320; 82962 ×2; 85025; 96360; 96361; 99284; J1815; J7030; G0480

== ENCOUNTER 2021-01-08 14:52 | Emergency (ER) | payer MEDICARE, OTHER ==
[~2021-01-08] VITALS: Ht 165.1 cm; Wt 61.7 kg
--- NOTE | 2021-01-08 15:16 | NUR ---
The patient is [id number] c/o body pain/burning sensation x yesterday bg [id number] sloop captain. Alert and oriented x4. In room air and denies SOB. Respiration regular and unlabored. Will continue to monitor the patient.
[2021-01-08] MEDS: IV NS 0.9% 100 ML IV ONE (15:30)
[2021-01-08 16:09] LABS: BASOPHILS # (AUTO) 0.1 K/uL (0.0-0.2); BASOPHILS % (AUTO) 1.3 % (0.0-2.0); EOSINOPHILS % (AUTO) 0.4 % (0.0-6.0); HEMATOCRIT 45 % (33-45); HEMOGLOBIN 14.9 g/dL (11.5-14.8); LYMPHOCYTES # (AUTO) 2.4 K/uL (0.8-4.8); LYMPHOCYTES % (AUTO) 28.2 % (20.0-44.0); MEAN CORPUSCULAR HGB CONC 33 g/dl (31.0-36.0); MEAN CORPUSCULAR VOLUME 91 fL (82-100); MONOCYTES # (AUTO) 0.4 K/uL (0.1-1.30); MONOCYTES % (AUTO) 4.8 % (2.0-12.0); NEUTROPHILS # (AUTO) 5.6 K/uL (1.8-8.9); NEUTROPHILS % (AUTO) 65.3 % (43.0-81.0); PLATELET COUNT (AUTO) 305 K/uL (150-450); RED BLOOD CELL COUNT(AUTO) 4.94 MIL/uL (4.0-5.2); WHITE BLOOD COUNT (AUTO) 8.6 K/uL (4.3-11.0)
[2021-01-08 16:21] LABS: ALANINE AMINOTRANSFERASE 52 U/L (12-78); ALBUMIN 4.4 g/dL (3.4-5.0); ALKALINE PHOSPHATASE 145 U/L (46-116); ASPARTATE AMINOTRANSFERASE 26 U/L (15-37); BILIRUBIN,DIRECT 0.1 mg/dL (0.0-0.2); BILIRUBIN,TOTAL 0.6 mg/dL (0.2-1.0); CALCIUM, SERUM 9.7 mg/dL (8.5-10.1); CARBON DIOXIDE 26 mmol/L (21-32); CHLORIDE 96 mmol/L (98-107); CREATININE 0.9 mg/dL (0.6-1.3); POTASSIUM 4.2 mmol/L (3.5-5.1); SODIUM SERUM 135 mmol/L (136-145); TOTAL PROTEIN, SERUM 8.5 g/dL (6.4-8.2); UREA NITROGEN, BLOOD 12 mg/dL (7-18)
[2021-01-08] MEDS: IV NS 0.9% 1,000 ML IV ONE ×2 (16:30→17:34)
[2021-01-08 16:32] LABS: GLUCOSE 393 mg/dL (74-106)
--- NOTE | 2021-01-08 16:36 | NUR ---
unable to provide urine at this time
--- NOTE | 2021-01-08 17:15 | NUR ---
URINE COLLECTED AND SENT TO THE LAB
[2021-01-08 17:30] LABS: ALCOHOL, BLOOD < 3 mg/dL (0-0)
--- NOTE | 2021-01-08 19:15 | NUR ---
IV removed. Catheter intact and site benign. Pressure and 4x4 applied to site. No bleeding noted.Patient discharged to home in stable condition. Written and verbal after care instructions given. Patient verbalizes understanding of instruction.
[2021-01-08 19:16] VITALS: BP 123/88
== END 2021-01-08 19:16 | disposition home or self-care (01) ==
LOC: ER 14:59
DX: E11.65 Type 2 diabetes mellitus with hyperglycemia (principal); E86.0 Dehydration; F32.9 Major depressive disorder, single episode, unspecified; G89.29 Other chronic pain; G40.909 Epilepsy, unspecified, not intractable, without status epilepticus; F17.200 Nicotine dependence, unspecified, uncomplicated; Z98.890 Other specified postprocedural states; Z79.899 Other long term (current) drug therapy; Z79.4 Long term (current) use of insulin
CPT/HCPCS: 36415; 71045; 80048; 80076; 80307; 80320; 82010; 82962; 83735; 84484; 85025; 93005; 96360; 96361; 99285; J7030 ×3; G0480